=== PATIENT | female | born 1965 | race Caucasian/White ===

== ENCOUNTER 2016-03-05 16:46 | Emergency (ER) | payer MEDICAID ==
[2016-03-05] MEDS ORDERED: CLONIDINE HCL 0.1 MG TABLET PO ONE (17:16)
[2016-03-05] MEDS ORDERED: ACETAMINOPHEN 325 MG TABLET PO ONE (17:16)
--- NOTE | 2016-03-05 17:17 | ER Document Report ---
ED Medical Screen (RME) - General Stated Complaint: BLOOD PRESSURE ISSUE Mode of Arrival: Ambulatory Information source: Patient Notes: Patient was at her [employer] [employer] doctors office for routine Pap test. Patient had blood pressure. Patient states she doesn't history of hypertension but has not been on medication for years. Patient complains of fatigue but denies any other symptoms. Patient claims of mild headache that started over the past hour. hx: Hypertension I have greeted and performed a rapid initial assessment of this patient. A comprehensive ED assessment and evaluation of the patient, analysis of test results and completion of the medical decision making process will be conducted by additional ED providers. TRAVEL OUTSIDE OF THE [place] IN LAST 30 DAYS: No - Related Data Allergies/Adverse Reactions: No Known Allergies Allergy (Verified 03/05/16 17:15) Past Medical History - Past Medical History Cardiac Medical History: Reports: Hx Hypertension - Immunizations Hx Diphtheria, Pertussis, Tetanus Vaccination: Yes - UTD Physical Exam - Vital signs Vitals: Temp Pulse Resp BP Pulse Ox 98.2 F 92 20 188/113 H 99 03/05/16 16:49 03/05/16 16:49 03/05/16 16:49 03/05/16 16:49 03/05/16 16:49 - Neurological Neuro grossly intact: Yes Cognition: Normal [place] Coma Scale Eye Opening: Spontaneous [place] Coma Scale Verbal: Oriented [place] Coma Scale Motor: Obeys Commands Arits Coma Scale Total: 15 Course - Vital Signs Vital signs: Temp Pulse Resp BP Pulse Ox 98.2 F 92 20 188/113 H 99 03/05/16 16:49 03/05/16 16:49 03/05/16 16:49 03/05/16 16:49 03/05/16 16:49
[2016-03-05] MEDS ORDERED: LISINOPRIL 10 MG TABLET PO ONE (17:57)
--- NOTE | 2016-03-05 18:03 | ER Document Report ---
ED Blood Pressure Problem - General Chief Complaint: High Blood Pressure Stated Complaint: BLOOD PRESSURE ISSUE Time seen by provider: 17:58 Mode of Arrival: Ambulatory Notes: This is a 50-year-old female with a history of hypertension that presents today with elevated blood pressure. 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 On repeat measurement the blood pressure was 162/118. She admits to a frontal bilateral headache that started at 1500 today. Admits to light sensitivity but denies nausea vomiting or chills chest pain or pleuritic chest pain. Patient denies eye pain. Headache is 5 out of 10 with no radiation. She has had intermittent headaches similar in symptoms for the past 3 days. [facility] but does not have a primary care physician. She states that she has not taken any blood pressure medicine for years. TRAVEL OUTSIDE OF THE [place] IN LAST 30 DAYS: No - Related Data Allergies/Adverse Reactions: No Known Allergies Allergy (Verified 03/05/16 17:15) Past Medical History - General Information source: Patient - Social History Smoking Status: Current Every Day Smoker - Patient smokes 3 cigarettes per day for the past 6 years Chew tobacco use (# tins/day): No Frequency of alcohol use: None Drug Abuse: None Family History: Hypertension Patient has suicidal ideation: No Patient has homicidal ideation: No - Past Medical History Cardiac Medical History: Reports: Hx Hypertension Renal/ Medical History: Denies: Hx Peritoneal Dialysis - Immunizations Hx Diphtheria, Pertussis, Tetanus Vaccination: Yes - UTD Review of Systems - Review of Systems Constitutional: denies: Chills, Fever EENT: See HPI Cardiovascular: denies: Chest pain, Dyspnea Respiratory: denies: Cough, Hurts to breathe Gastrointestinal: denies: Abdominal pain Genitourinary: No symptoms reported Musculoskeletal: No symptoms reported Skin: No symptoms reported Hematologic/Lymphatic: No symptoms reported Neurological/Psychological: No symptoms reported Physical Exam - Vital signs Vitals: Temp Pulse Resp BP Pulse Ox 98.2 F 92 20 188/113 H 99 03/05/16 16:49 03/05/16 16:49 03/05/16 16:49 03/05/16 16:49 03/05/16 16:49 - General General appearance: Appears well In distress: None - HEENT Head: Normocephalic, Atraumatic Eyes: Normal - No circumferential injection. No redeye bilaterally Conjunctiva: Normal Pupils: PERRL - Bilateral normal pupillary light reflex. - Respiratory Respiratory status: No respiratory distress Breath sounds: Normal. No: Rales, Rhonchi, Stridor, Wheezing - Cardiovascular Rhythm: Regular Heart sounds: Normal auscultation - Abdominal Inspection: Normal Tenderness: Nontender - Back Back: Normal. No: CVA tenderness - Extremities General upper extremity: Normal inspection, Nontender, Normal strength, Normal temperature General lower extremity: Normal inspection, Nontender, Normal strength, Normal temperature - Neurological Cognition: Normal. No: Confused - Psychological Associated symptoms: Normal affect, Normal mood - Skin Skin Temperature: Warm Skin Moisture: Dry Skin Color: Normal Course - Re-evaluation Re-evalutation: 03/05/16 18:00 Patient was advised to establish care with primary care physician. Patient was advised to take blood pressure medicine as prescribed and regularly check blood pressure. Patient was advised to recheck blood pressure at primary care physician's office in a week or come back to the emergency department if she develops any symptoms. - Vital Signs Vital signs: Temp Pulse Resp BP Pulse Ox 98.6 F 83 20 154/108 H 96 03/05/16 18:38 03/05/16 18:38 03/05/16 16:49 03/05/16 18:38 03/05/16 18:38 - Laboratory Result Diagrams: 03/05/16 17:55 03/05/16 17:55 Laboratory results interpreted by me: 03/05/16 17:55 RDW 14.1 H Discharge - Discharge Clinical Impression: Headache Qualifiers: Headache type: tension-type Headache chronicity pattern: acute headache Intractability: not intractable Qualified Code(s): G44.209 - Tension-type headache, unspecified, not intractable High blood pressure Qualifiers: Hypertension type: essential hypertension Qualified Code(s): I10 - Essential ( primary) hypertension Condition: Stable Disposition: HOME, SELF-CARE Additional Instructions: Return to the emergency department if symptoms worsen such as loss of consciousness, changes in vision, nausea, vomiting,etc. follow-up with primary care physician as soon as possible.High Blood Pressure When your blood pressure was taken today it was elevated. Today's reading was 188/113 . Pre-hypertension/Hypertension: The patient has been informed that they may have pre-hypertension or Hypertension based on a blood pressure reading in the emergency department. I recommend that the patient call the primary care provider listed on their dischargge instructions or a physician of their choice this wee to arrage follow up for further evaluation of possible pre- hypertension or Hypertension. Sometimes, stress or illness causes a temporary elevation of your blood pressure. We suggest that you get your blood pressure measured three more times during the next few days to see if this is more than a temporary abnormality. If your blood pressure is greater than 150/90 on each occasion, you must have treatment. Some simple things you can do to help are: If you have blood pressure medicine but aren't using it regularly, start taking it again. Get some aerobic exercise for at least 20 minutes on a daily basis. (See your doctor before beginning a new exercise program.) Eat a low-fat diet. Lose excess weight. Avoid salty foods and avoid adding salt to any of the foods you eat. Avoid diet pills, decongestants, "energizing" herbs, and other medicines that elevate blood pressure. If left untreated, hypertension greatly enhances your risk for developing heart disease and strokes. Please don't ignore this problem. Prescriptions: Lisinopril 20 mg PO ONCE #20 tablet Referrals: [facility] [Provider Group] - Follow up as needed
[2016-03-05 18:04] LABS: ABSOLUTE EOSINOPHILS # (AUTO) 0.3 10^3/uL (0.0-0.6); ABSOLUTE LYMPHOCYTES (AUTO) 2.3 10^3/uL (0.5-4.7); ABSOLUTE MONOCYTES (AUTO) 0.6 10^3/uL (0.1-1.4); ABSOLUTE NEUT (AUTO) 4.4 10^3/uL (1.7-8.2); BASOPHILS % (AUTO) 0.6 % (0-2); EOSINOPHILS % (AUTO) 4.4 % (0-6); HEMATOCRIT 41.3 % (36.0-47.0); HEMOGLOBIN 13.3 g/dL (12.0-15.5); HGB HCT DIFFERENCE -1.4; LYMPHOCYTES % (AUTO) 29.8 % (13-45); MEAN CORPUSCULAR HEMOGLOBIN 30.2 pg (27.0-33.4); MEAN CORPUSCULAR HGB CONC 32.2 g/dL (32.0-36.0); MEAN CORPUSCULAR VOLUME 94 fl (80-97); MONOCYTES % (AUTO) 7.9 % (3-13); RED CELL DISTRIBUTION WIDTH 14.1 % (11.5-14.0); SEGMENTED NEUTROPHILS % (AUTO) 57.3 % (42-78); WHITE BLOOD COUNT 7.6 10^3/uL (4.0-10.5)
[2016-03-05 18:29] LABS: ALANINE AMINOTRANSFERASE 45 U/L (9-52); ALBUMIN 4.3 g/dL (3.5-5.0); ALKALINE PHOSPHATASE 87 U/L (38-126); ANION GAP 12 (5-19); ASPARTATE AMINO TRANSFERASE 35 U/L (14-36); BILIRUBIN,TOTAL 0.4 mg/dL (0.2-1.3); BLOOD UREA NITROGEN 16 mg/dL (7-20); CALCIUM 9.8 mg/dL (8.4-10.2); CARBON DIOXIDE 25 mmol/L (22-30); CHLORIDE 104 mmol/L (98-107); CREATININE RESULT 0.64 mg/dL (0.52-1.25); GLUCOSE 85 mg/dL (75-110); POTASSIUM 4.1 mmol/L (3.6-5.0); TOTAL PROTEIN 7.4 g/dL (6.3-8.2)
[2016-03-05 18:39] VITALS: BP 154/108
== END 2016-03-05 18:50 | disposition home or self-care (01) ==
LOC: ER 16:46
DX: G44.209 Tension-type headache, unspecified, not intractable (principal); I10 Essential (primary) hypertension; F17.210 Nicotine dependence, cigarettes, uncomplicated
CPT/HCPCS: 99283; 36415; 85025; 80053; J3490 ×3

== ENCOUNTER 2016-07-06 09:47 | Emergency (ER) | payer MEDICAID ==
[2016-07-06 09:58] VITALS: BP 153/89
[2016-07-06] MEDS ORDERED: NORMAL SALINE 1000 ML 1,000 ML IV ONE (10:27)
[2016-07-06] MEDS ORDERED: ONDANSETRON 4 MG TAB.RAPDIS PO ONE (10:27)
--- NOTE | 2016-07-06 10:29 | ER Document Report ---
ED Medical Screen (RME) - General Chief Complaint: Abdominal Cramping Stated Complaint: VOMITING,ABDOMINAL PAIN Time Seen by Provider: 07/06/16 10:22 Notes: Patient is a 50-year-old female presents emergency department complaining of diarrhea for 2 weeks now with associated abdominal cramping, nausea, vomiting that started yesterday. Patient states that she underwent an elective gynecologic procedure 1 month ago and was discharged home on antibiotics. She does not know what antibiotic she was on. When she completed that course she has been having diarrhea for the past 2 weeks. No evidence of bright red blood per rectum, dark tarry stools. Denies any history of abdominal procedure otherwise. TRAVEL OUTSIDE OF THE [place] IN LAST 30 DAYS: No - Related Data Allergies/Adverse Reactions: No Known Allergies Allergy (Verified 07/06/16 09:57) Past Medical History - Past Medical History Cardiac Medical History: Reports: Hx Hypertension Renal/ Medical History: Denies: Hx Peritoneal Dialysis - Immunizations Hx Diphtheria, Pertussis, Tetanus Vaccination: Yes - UTD Physical Exam - Vital signs Vitals: Temp Pulse Resp BP Pulse Ox 98.0 F 95 18 153/89 H 97 07/06/16 09:56 07/06/16 09:56 07/06/16 09:56 07/06/16 09:56 07/06/16 09:56 Course - Vital Signs Vital signs: Temp Pulse Resp BP Pulse Ox 98.0 F 95 18 153/89 H 97 07/06/16 09:56 07/06/16 09:56 07/06/16 09:56 07/06/16 09:56 07/06/16 09:56
[2016-07-06 10:58] LABS: APPEARANCE,URINE SLIGHTLY-CLOUDY; BILIRUBIN,URINE NEGATIVE (NEGATIVE); GLUCOSE, URINE NEGATIVE (NEGATIVE); KETONES,URINE 20 mg/dL (NEGATIVE); LEUKOCYTE ESTERASE,URINE NEGATIVE (NEGATIVE); NITRITE,URINE NEGATIVE (NEGATIVE); PROTEIN,URINE 30 mg/dL (NEGATIVE); URINE SPECIFIC GRAVITY 1.016; UROBILINOGEN,URINE NEGATIVE mg/dL (<2.0)
[2016-07-06 11:28] LABS: ABSOLUTE EOSINOPHILS # (AUTO) 0.2 10^3/uL (0.0-0.6); ABSOLUTE MONOCYTES (AUTO) 0.6 10^3/uL (0.1-1.4); ABSOLUTE NEUT (AUTO) 9.1 10^3/uL (1.7-8.2); BASOPHILS % (AUTO) 0.2 % (0-2); EOSINOPHILS % (AUTO) 2.1 % (0-6); HEMATOCRIT 40.4 % (36.0-47.0); HEMOGLOBIN 13.9 g/dL (12.0-15.5); HGB HCT DIFFERENCE 1.3; LYMPHOCYTES % (AUTO) 9.2 % (13-45); MEAN CORPUSCULAR HEMOGLOBIN 31.9 pg (27.0-33.4); MEAN CORPUSCULAR HGB CONC 34.3 g/dL (32.0-36.0); MEAN CORPUSCULAR VOLUME 93 fl (80-97); MONOCYTES % (AUTO) 5.5 % (3-13); RED BLOOD COUNT 4.34 10^6/uL (3.72-5.28); RED CELL DISTRIBUTION WIDTH 13.8 % (11.5-14.0)
[2016-07-06 11:40] LABS: ALANINE AMINOTRANSFERASE 34 U/L (9-52); ALBUMIN 4.4 g/dL (3.5-5.0); ALKALINE PHOSPHATASE 90 U/L (38-126); ANION GAP 14 (5-19); ASPARTATE AMINO TRANSFERASE 29 U/L (14-36); BILIRUBIN,DIRECT 0.3 mg/dL (0.0-0.4); BILIRUBIN,TOTAL 0.8 mg/dL (0.2-1.3); BLOOD UREA NITROGEN 10 mg/dL (7-20); CALCIUM 9.7 mg/dL (8.4-10.2); CARBON DIOXIDE 30 mmol/L (22-30); CHLORIDE 99 mmol/L (98-107); CREATININE RESULT 0.66 mg/dL (0.52-1.25); GLUCOSE 98 mg/dL (75-110); LIPASE 17.2 U/L (23-300); POTASSIUM 3.7 mmol/L (3.6-5.0); SODIUM 142.8 mmol/L (137-145); TOTAL PROTEIN 7.8 g/dL (6.3-8.2)
--- NOTE | 2016-07-06 12:02 | ER Document Report ---
ED GI/ - General Mode of Arrival: Ambulatory Information source: Patient TRAVEL OUTSIDE OF THE [place] IN LAST 30 DAYS: No - HPI Patient complains to provider of: Diarrhea Associated symptoms: Other - See above <DERRELL SHELDON - Last Filed: 07/06/16 12:04> <ALONSO CARTER - Last Filed: 07/06/16 15:41> - General Chief Complaint: Diarrhea Stated Complaint: diarrhea Time Seen by Provider: 07/06/16 10:22 Notes: Patient is a 50 year old female, with a past medical history including HTN, who presents to the emergency department complaining of diarrhea onset 2 weeks ago. Patient states that she underwent an elective gynecologic procedure 1 month ago and was discharged home on antibiotics. Patient states that the anti-diarrheal medicine have not been working. Patient also complains of abdominal cramping and vomiting onset yesterday. Patient denies dysuria. PCP: [facility] (DERRELL SHELDON) - Related Data Allergies/Adverse Reactions: No Known Allergies Allergy (Verified 07/06/16 09:57) Past Medical History - General Information source: Patient - Social History Smoking Status: Current Some Day Smoker Chew tobacco use (# tins/day): No Frequency of alcohol use: Occasional Drug Abuse: None Family History: Reviewed & Not Pertinent, Hypertension Patient has suicidal ideation: No Patient has homicidal ideation: No - Past Medical History Cardiac Medical History: Reports: Hx Hypertension - Immunizations Hx Diphtheria, Pertussis, Tetanus Vaccination: Yes - UTD <DERRELL SHELDON - Last Filed: 07/06/16 12:04> Review of Systems - Review of Systems Gastrointestinal: See HPI, Abdominal pain, Diarrhea, Vomiting -: Yes All other systems reviewed and negative <DERRELL SHELDON - Last Filed: 07/06/16 12:04> Course - Laboratory Result Diagrams: 07/06/16 11:10 07/06/16 11:10 <DERRELL SHELDON - Last Filed: 07/06/16 12:04> - Laboratory Result Diagrams: 07/06/16 11:10 07/06/16 11:10 <ALONSO CARTER - Last Filed: 07/06/16 15:41> - Re-evaluation Re-evalutation: 07/06/16 12:15 Patient presents emergency department 2 week history of intermittent diarrhea nonbloody in nature. In 2-3 days ago she started having vomiting. 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 No history of Crohn's disease or ulcerative colitis. On exam she is well-appearing nontoxic in no acute distress and after Zofran she feels like she wants to eat something. She gave a stool sample and a urine sample out in the triage area and was already receiving Zofran and IV fluids. Her abdomen is soft no acute tenderness Kreymerman G stable acute labs were positive for C. difficile. Vomiting is controlled no acute abdominal guarding rebound rigidity plan discharge with medications for Flagyl and Cipro oral hydration nausea medication follow-up to 3 days and discussed reasons for ED return (ALONSO CARTER) - Vital Signs Vital signs: Temp Pulse Resp BP Pulse Ox 98.8 F 92 18 153/89 H 98 07/06/16 12:33 07/06/16 12:33 07/06/16 12:33 07/06/16 12:33 07/06/16 12:33 - Laboratory Laboratory results interpreted by me: 07/06/16 07/06/16 07/06/16 10:40 11:10 11:10 WBC 11.0 H Seg Neutrophils % 83.0 H Lymphocytes % 9.2 L Absolute Neutrophils 9.1 H Lipase 17.2 L Urine Protein 30 H Urine Ketones 20 H Urine Blood MODERATE H Discharge <DERRELL SHELDON - Last Filed: 07/06/16 12:04> <ALONSO CARTER - Last Filed: 07/06/16 15:41> - Discharge Clinical Impression: C. difficile diarrhea Vomiting Qualifiers: Vomiting type: unspecified Vomiting Intractability: non-intractable Nausea presence: with nausea Qualified Code(s): R11.2 - Nausea with vomiting, unspecified Condition: Stable Disposition: HOME, SELF-CARE Instructions: Antinausea Medication ([facility]) Additional Instructions: C. (Clostridium) Difficile Infection C. difficile bacteria are everywhere - in soil, air, water, human and animal feces, and on most surfaces. The bacteria don't create problems until they grow in abnormally large numbers in the intestinal tract of people taking antibiotics or other antimicrobial drugs. Then, C. difficile can cause symptoms ranging from diarrhea to life-threatening inflammations of the colon. According to the Centers for Disease Control and Prevention, each year in the [place] C. difficile is responsible for tens of thousands of cases of diarrhea and at least 5,000 deaths. And the problem is getting worse. The number of C. difficile infections doubled between 1992 and 2002, with most of the increase coming after 1999. Your intestinal tract contains hundreds of kinds of bacteria (intestinal linda). Many are essential, helping to synthesize certain vitamins and stimulating the immune system. And some play a lyons role in suppressing the growth of harmful organisms. But when you take an antibiotic to treat an infection, it often destroys these beneficial bacteria as well as the bacteria that's causing your illness. Without enough healthy bacteria, dangerous pathogens such as C. difficile can quickly grow out of control. Once it takes hold, C. difficile can produce two virulent toxins that attack the lining of the intestine. The toxins destroy cells and produce pseudomembranes - telltale patches (plaques) of inflammatory cells and decaying cellular debris on the interior surface of the colon. Almost any antibiotic can cause harmful bacteria to proliferate in the intestine, but ampicillin, amoxicillin, clindamycin, fluoroquinolones and cephalosporins are most often implicated in C. difficile infections. The use of broad-spectrum drugs that target a wide range of bacteria and the taking of antibiotics for a prolonged period increase the chance of infection. Other antimicrobials, including antiviral and antifungal drugs, and chemotherapy medications also can lead to an increased risk of infection with C. difficile. It's also a growing problem among otherwise healthy people. And although the infection can usually be controlled with antibiotics, virulent strains of C. difficile are now appearing that resist treatment with common medications. Vomiting Vomiting can be part of many illnesses. Most cases of vomiting are due to gastroenteritis, usually a viral infection in the intestinal tract. There is no specific treatment. The disease will end by itself. For now, the main danger to your child is dehydration. During the first few hours of the illness, give clear liquids, such as Pedialyte. Try to give small quantities frequently, such as a teaspoon of liquid every minute or about an ounce of fluids every five to ten minutes. Medications may be prescribed by the physician for special cases. After an hour or two of fluids without vomiting, add rice cereal, toast, applesauce, or bananas and other more solid foods to the clear liquids. Call the physician or go to the hospital if vomiting increases or blood appears in the bowel movement or vomitus; if your child fails to improve, or if signs of dehydration occur (no wet diapers for eight to twelve hours, tongue and mouth become dry, not acting as alert as usual). Prescriptions: Ciprofloxacin HCl [Cipro 500 mg Tablet] 500 mg PO BID #20 tablet Metronidazole [Flagyl 500 mg Tablet] 500 mg PO Q6H #28 tablet Ondansetron [Zofran Odt 4 mg Tablet] 1 - 2 tab PO Q4H PRN #15 tab.rapdis PRN Reason: For Nausea/Vomiting Referrals: JOHN SANTOS MD [Primary Care Provider] - Follow up as needed Scribe Attestation: 07/06/16 12:14 I personally performed the services described in the documentation reviewed the documentation recorded by my scribe in my presence and it accurately and completely records my words and actions (ALONSO CARTER)
== END 2016-07-06 12:34 | disposition home or self-care (01) ==
LOC: ER 09:47
DX: A04.7 Enterocolitis due to Clostridium difficile (principal); R11.2 Nausea with vomiting, unspecified; I10 Essential (primary) hypertension; R10.9 Unspecified abdominal pain; F17.200 Nicotine dependence, unspecified, uncomplicated; Z98.890 Other specified postprocedural states
CPT/HCPCS: 99284; 96360; 36415; 83690; 85025; 80053; 81001; 87493 ×2; S0119; J7030

== ENCOUNTER 2017-05-12 15:33 | Emergency (ER) | payer MEDICAID ==
[2017-05-12 15:55] VITALS: BP 152/88
[2017-05-12] MEDS ORDERED: KETOROLAC TROMETHAMINE INJ/PF 30 MG/1 ML SDV IM ONE (16:04)
--- NOTE | 2017-05-12 16:05 | ER Document Report ---
ED Neck/Back Problem - General Chief Complaint: Low Back Pain Stated Complaint: BACK PAIN Time Seen by Provider: 05/12/17 15:56 Mode of Arrival: Ambulatory Information source: Patient TRAVEL OUTSIDE OF THE [place] IN LAST 30 DAYS: No - HPI Patient complains to provider of: Pain, Lower back Notes: Patient is here with complaints of low back pain radiating down the left leg. Is been present for the last few weeks. Seems to be getting worse. Pain is worse with movement, better with rest. She denies any traumatic injuries. States that this started after she was on an elliptical for several hours. She denies any bowel or bladder dysfunction. She denies blood thinners. She denies IV drug use. No fever. No abdominal pain. No nausea, vomiting, diarrhea. No dysuria or hematuria. No chest pain or shortness of breath. She denies any other complaints at this time. - Related Data Allergies/Adverse Reactions: No Known Allergies Allergy (Verified 05/12/17 15:36) Past Medical History - Social History Smoking Status: Unknown if Ever Smoked Family History: Reviewed & Not Pertinent, Hypertension - Past Medical History Cardiac Medical History: Reports: Hx Hypertension Renal/ Medical History: Denies: Hx Peritoneal Dialysis - Immunizations Hx Diphtheria, Pertussis, Tetanus Vaccination: Yes - UTD Review of Systems - Review of Systems -: Yes All other systems reviewed and negative Physical Exam - Vital signs Vitals: Temp Pulse Resp BP Pulse Ox 97.5 F 76 16 152/88 H 99 05/12/17 15:53 05/12/17 15:53 05/12/17 15:53 05/12/17 15:53 05/12/17 15:53 - Notes Notes: GENERAL: alert, cooperative, nontoxic, no distress. HEAD: normocephalic, atraumatic EYES: conjunctiva pink without discharge, no external redness or swelling. EARS: no external swelling, no external redness NOSE: atraumatic, no external swelling MOUTH/THROAT: mucous membranes moist and pink, posterior pharynx without erythema, swelling, exudate. No trismus or drooling. NECK: soft, supple, full range of motion, no meningismus. CHEST: no distress, lungs clear and equal throughout. No wheezing, rales, rhonchi. CARDIAC: regular rate and rhythm, no murmur, normal capillary refill, normal pulses. No peripheral edema noted. ABDOMEN: soft, nontender, no pusatile mass. BACK: No CVA tenderness. Tenderness to the midline lumbar spine. No step-offs or crepitus. EXTREMITIES: full range of motion of all extremities. No redness, no swelling. NEURO: alert and oriented A&O x 3, no focal deficits, full range of motion of all extremities. 5 out of 5 flexion and extension of the lower extremities bilaterally. Patellar and Achilles deep tendon reflexes are +2 bilaterally. Normal sensation with no saddle anesthesia. Patient can dorsiflex the great toes bilaterally. PYSCH: appropriate mood, affect. Patient is cooperative. SKIN: pink, warm, dry, no rash. Course - Re-evaluation Re-evalutation: 05/12/17 16:45 Patient is nontoxic appearing with stable vitals. She is here with complaints of low back pain radiating down the left leg. There was no trauma. Patient has no signs of cauda equina, epidural abscess/bleed, discitis, osteomyelitis, limb ischemia, AAA. She has a nonfocal neurological exam at this time. X-ray shows degenerative changes lumbar spine with no other acute findings. This point the patient likely has some lumbar radiculopathy. The patient will be discharged home on Voltaren. If the Voltaren does not improve her symptoms within the next week, she may require steroids. She states that she took a [place] which did nothing but make her sleepy and she does not want any other sort of narcotic medications. She is instructed to follow-up if she has not improved in the next week, sooner for worsening pain, high fever, difficulty controlling her bowels or bladder, or for any further concerns. The patient's emergency department workup and current diagnosis were explained to the patient and or family. Follow-up instructions were provided. Medications if prescribed were discussed. Instructions for when to return to the emergency department including specific worrisome symptoms were discussed with the patient and/or family. The patient is noted to have elevated blood pressure during today's emergency department visit. The patient was informed of this finding. The patient was instructed that this may be related to pre-hypertension and requires further evaluation with a primary care provider. The patient has no hypertensive symptoms at this time. - Vital Signs Vital signs: Temp Pulse Resp BP Pulse Ox 97.5 F 76 16 152/88 H 99 03/26/18 15:53 05/12/17 15:53 05/12/17 15:53 05/12/17 15:53 05/12/17 15:53 - Diagnostic Test Radiology reviewed: Image reviewed, Reports reviewed - Degenerative changes of the lumbar spine. Discharge - Discharge Clinical Impression: Lumbar radiculopathy, acute Condition: Stable Disposition: HOME, SELF-CARE Instructions: Low Back Pain ([facility]), Radiculopathy ([facility]) Additional Instructions: Take medications as prescribed. Avoid heavy lifting. Follow-up if not better in 1 week, sooner for worsening pain, fever, difficulty controlling her bowels or bladder, persistent vomiting, chest pain, shortness of breath, or for any further concerns. Your blood pressure was elevated during today's visit. Have this rechecked with your doctor. Prescriptions: Diclofenac Sodium [Voltaren 50 Mg Tablet.] 50 mg PO BID #20 tablet. Forms: Elevated Blood Pressure, Smoking Cessation Education Referrals: [facility] [Provider Group] - Follow up as needed
--- NOTE | 2017-05-12 16:30 | RADIOLOGY REPORT (SQ) ---
EXAM DESCRIPTION: L SPINE WHOLE COMPLETED DATE/TIME: 05/12/2017 4:20 pm REASON FOR STUDY: low back pain, left leg pain COMPARISON: None. NUMBER OF VIEWS: Five views including obliques. TECHNIQUE: AP, lateral, oblique, and sacral radiographic images acquired of the lumbar spine. LIMITATIONS: None. FINDINGS: MINERALIZATION: Normal. SEGMENTATION: Normal. No transitional anatomy. ALIGNMENT: Normal. VERTEBRAE: Maintained height. No fracture or worrisome bone lesion. DISCS: Preserved height. Minimal anterior osteophytic lipping is identified in the upper lumbar spin e. POSTERIOR ELEMENTS: Pedicles and facets are intact. No pars defect or posterior arch defects. HARDWARE: None in the spine. PARASPINAL SOFT TISSUES: Normal. PELVIS: Intact as visualized. No fractures or worrisome bone lesions. SI joints intact. OTHER: No other significant finding. IMPRESSION: No significant vertebral compression or disc space reduction is seen. There is minimal anterior osteophytic lipping in the upper lumbar spine. Other findings as noted above TECHNICAL DOCUMENTATION: JOB ID: [id number]- All Rights Reserved Reading location - IP/workstation name: [email or web address]
== END 2017-05-12 17:01 | disposition home or self-care (01) ==
LOC: ER 15:33
DX: M54.16 Radiculopathy, lumbar region (principal); M54.5 Low back pain; M79.605 Pain in left leg; X58.XXXA Exposure to other specified factors, initial encounter; Y93.A1 Activity, exercise machines primarily for cardiorespiratory conditioning; I10 Essential (primary) hypertension
CPT/HCPCS: 99283; 96372; 72110; J1885

== ENCOUNTER 2017-07-30 05:56 | Observation (INO) | payer MEDICAID ==
--- NOTE | 2017-07-30 07:12 | ER Document Report ---
ED General - General Chief Complaint: Abdominal Pain Stated Complaint: ABDOMINAL PAIN Time Seen by Provider: 07/30/17 07:12 Mode of Arrival: Ambulatory Information source: Patient TRAVEL OUTSIDE OF THE [place] IN LAST 30 DAYS: No - HPI Notes: 51-year-old female presents to the ED with complaints of LUQ, epigastric, right upper quadrant pain has been occurring for the last day with nausea and vomiting. Intermittent chills, denies fevers. Worse with time, nothing makes better. Has not tried any [id number]-dgu-dfkosfe medication. Denies any rashes. Denies any trauma. Denies fevers, chills, chest pain,palpitations, shortness of breath, dyspnea,diarrhea, hematuria,blurred vision, double vision, loss of vision, speech changes, LH, dizziness, syncope, headaches, wheezing, ST, URI, neck pain, weakness, bowel or bladder dysfunction, saddle anesthesia, numbness or tingling in bilateral upper or lower extremities equally, muscle paralysis, weakness in bilateral upper or lower extremities equally or rash. Denies IV drug use. - Related Data Allergies/Adverse Reactions: No Known Allergies Allergy (Verified 07/30/17 10:53) Past Medical History - General Information source: Patient - Social History Smoking Status: Unknown if Ever Smoked Family History: Reviewed & Not Pertinent, Hypertension - Past Medical History Cardiac Medical History: Reports: Hx Hypertension Renal/ Medical History: Denies: Hx Peritoneal Dialysis - Immunizations Hx Diphtheria, Pertussis, Tetanus Vaccination: Yes - UTD Review of Systems - Review of Systems Constitutional: See HPI EENT: No symptoms reported Cardiovascular: No symptoms reported Respiratory: No symptoms reported Gastrointestinal: See HPI Genitourinary: No symptoms reported Female Genitourinary: No symptoms reported Musculoskeletal: No symptoms reported Skin: No symptoms reported Hematologic/Lymphatic: No symptoms reported Neurological/Psychological: No symptoms reported Physical Exam - Vital signs Vitals: Temp Pulse Resp BP Pulse Ox 97.6 F 93 18 151/101 H 96 07/30/17 06:04 07/30/17 06:04 07/30/17 06:04 07/30/17 06:04 07/30/17 06:04 - Notes Notes: PHYSICAL EXAMINATION: GENERAL: Well-appearing, well-nourished and in no acute distress. HEAD: Atraumatic, normocephalic. EYES: Pupils equal round and reactive to light, extraocular movements intact, conjunctiva are normal. ENT: Nares patent, oropharynx clear without exudates. Moist mucous membranes. NECK: Normal range of motion, supple without lymphadenopathy LUNGS: Breath sounds clear to auscultation bilaterally and equal. No wheezes rales or rhonchi. HEART: Regular rate and rhythm without murmurs ABDOMEN: Soft, nondistended abdomen. LUQ, epigastric, RUQ tenderness on palpation with rebound. No guarding, no rebound. No masses appreciated. Female : deferred Musculoskeletal: Normal range of motion, no pitting or edema. No cyanosis. NEUROLOGICAL: Cranial nerves grossly intact. Normal speech, normal gait. Normal sensory, motor exams PSYCH: Normal mood, normal affect. SKIN: Warm, Dry, normal turgor, no rashes or lesions noted. Dictation was performed using [employer] voice recognition software Course - Re-evaluation Re-evalutation: 07/30/17 15:00 51-year-old female for who is afebrile, vitals stable and in mild distress for evaluation of nausea vomiting with upper abdominal pain. CT abdomen and pelvis shows thickening of gallbladder, limited right upper quadrant ultrasound. Transvaginal ultrasound shows a right small ovarian cysts, and no other pelvic abnormalities are identified. Slight elevation of LFTs, no elevation in bilirubin. ultrasound of right upper quadrant shows gallstones with biliary sludge, thickening of the gallbladder measuring 3.1, common bile duct is patent. Dr.Travis Ayala, surgeon on-call, contacted at [phone] bedside surgery consult. Admit under surgery service for removal of cholecystitis. All questions and concerns answered by this provider patient to be admitted. Patient agreeable to admission. - Vital Signs Vital signs: Temp Pulse Resp BP Pulse Ox 97.9 F 93 7 L 134/80 H 99 07/30/17 14:00 07/30/17 06:04 07/30/17 14:01 07/30/17 14:01 07/30/17 14:01 - Laboratory Result Diagrams: 07/30/17 08:25 07/30/17 08:25 Laboratory results interpreted by me: 07/30/17 07/30/17 08:05 08:25 Sodium 147.0 H Potassium 3.2 L Carbon Dioxide 35 H AST 70 H ALT 86 H Urine Protein 100 H Urine Ketones TRACE H Urine Blood MODERATE H Ur Leukocyte Esterase TRACE H Discharge - Discharge Clinical Impression: Bacterial vaginosis, Cholecystitis Condition: Stable Disposition: ADMITTED INPATIENT Admitting Provider: Surgicalist - Dr. Valdo Suh Unit Admitted: Surgical Floor Referrals: GUERRERO DELGADO PA-C [Primary Care Provider] - Follow up as needed
[2017-07-30] MEDS ORDERED: ONDANSETRON HCL INJ/PF 4 MG/2 ML SDV IV ONE (07:35)
[2017-07-30] MEDS ORDERED: KETOROLAC TROMETHAMINE INJ/PF 30 MG/1 ML SDV IV ONE (07:35)
[2017-07-30] MEDS ORDERED: METOCLOPRAMIDE HCL ORAL SOLN 10 MG/10 ML UDCUP PO ONE (07:36)
[2017-07-30] MEDS ORDERED: LIDOCAINE 2% VISCOUS SOLN 20 ML UDCUP PO ONE (07:36)
[2017-07-30] MEDS ORDERED: MAG HYDROX/AL HYDROX/SIMETH SUSP 30 ML UDCUP PO ONE (07:36)
[2017-07-30 08:26] LABS: APPEARANCE,URINE CLOUDY; BILIRUBIN,URINE NEGATIVE (NEGATIVE); COLOR,URINE YELLOW; GLUCOSE, URINE NEGATIVE (NEGATIVE); KETONES,URINE TRACE mg/dL (NEGATIVE); LEUKOCYTE ESTERASE,URINE TRACE (NEGATIVE); NITRITE,URINE NEGATIVE (NEGATIVE); PROTEIN,URINE 100 mg/dL (NEGATIVE); URINE SPECIFIC GRAVITY 1.019; UROBILINOGEN,URINE NEGATIVE mg/dL (<2.0)
[2017-07-30] MEDS: NORMAL SALINE 1000 ML 1,000 ML IV PRN ×3 (08:30→14:39)
[2017-07-30 08:50] LABS: ABSOLUTE EOSINOPHILS # (AUTO) 0.1 10^3/uL (0.0-0.6); ABSOLUTE LYMPHOCYTES (AUTO) 1.7 10^3/uL (0.5-4.7); ABSOLUTE MONOCYTES (AUTO) 0.6 10^3/uL (0.1-1.4); BASOPHILS % (AUTO) 0.6 % (0-2); EOSINOPHILS % (AUTO) 2.2 % (0-6); HEMOGLOBIN 12.7 g/dL (12.0-15.5); LYMPHOCYTES % (AUTO) 26.3 % (13-45); MEAN CORPUSCULAR HEMOGLOBIN 32.5 pg (27.0-33.4); MEAN CORPUSCULAR HGB CONC 35.4 g/dL (32.0-36.0); MEAN CORPUSCULAR VOLUME 92 fl (80-97); MONOCYTES % (AUTO) 9.3 % (3-13); PLATELET COUNT 289 10^3/uL (150-450); RED BLOOD COUNT 3.92 10^6/uL (3.72-5.28); RED CELL DISTRIBUTION WIDTH 13.9 % (11.5-14.0); SEGMENTED NEUTROPHILS % (AUTO) 61.6 % (42-78); TOTAL CELLS COUNTED % (AUTO) 100 %; WHITE BLOOD COUNT 6.5 10^3/uL (4.0-10.5)
[2017-07-30 09:19] LABS: ALANINE AMINOTRANSFERASE 86 U/L (9-52); ALBUMIN 3.8 g/dL (3.5-5.0); ALKALINE PHOSPHATASE 73 U/L (38-126); ANION GAP 10 (5-19); ASPARTATE AMINO TRANSFERASE 70 U/L (14-36); BILIRUBIN,DIRECT 0.2 mg/dL (0.0-0.4); BILIRUBIN,TOTAL 0.2 mg/dL (0.2-1.3); BLOOD UREA NITROGEN 14 mg/dL (7-20); CALCIUM 9.6 mg/dL (8.4-10.2); CARBON DIOXIDE 35 mmol/L (22-30); CHLORIDE 102 mmol/L (98-107); CREATINE KINASE 82 U/L (30-135); GLUCOSE 97 mg/dL (75-110); LIPASE 45.6 U/L (23-300); POTASSIUM 3.2 mmol/L (3.6-5.0); TOTAL PROTEIN 6.5 g/dL (6.3-8.2)
[2017-07-30 09:31] LABS: CREATINE KINASE MB 0.55 ng/mL (<4.55)
[2017-07-30 09:32] LABS: TROPONIN I < 0.012 ng/mL
[2017-07-30] MEDS ORDERED: FENTANYL CITRATE INJ/PF 100 MCG/2 ML AMPUL IV ONE (11:08)
--- NOTE | 2017-07-30 11:12 | RADIOLOGY REPORT (SQ) ---
EXAM DESCRIPTION: CT ABD/PELVIS WITH IV ONLY COMPLETED DATE/TIME: 07/30/2017 10:47 am REASON FOR STUDY: RUQ, LUQ abd pain, vag bleeding COMPARISON: None. TECHNIQUE: CT scan of the abdomen and pelvis performed using helical scanning technique with dynamic intravenous contrast injection. No oral contrast. Images reviewed with lung, soft tissue, and bone windows. Reconstructed coronal and sagittal MPR images reviewed. Delayed images for evaluation of the urinary system also acquired. All images stored on PACS. All CT scanners at this facility use dose modulation, iterative reconstruction, and/or weight based d osing when appropriate to reduce radiation dose to as low as reasonably achievable (ALARA). [facility]: Dose Right [facility]: CareDose [facility]: Dose Right [facility]: Teradose 4D [facility]: Coomuna CONTRAST TYPE AND DOSE: contrast/concentration: Isovue 370.00 mg/ml; Total Contrast Delivered: 83.0 ml; Total Saline Delivered: 65.0 ml RENAL FUNCTION: Creatinine 0.52 RADIATION DOSE: CT Rad equipment meets quality standard of care and radiation dose reduction techniq ues were employed. CTDIvol: 10.6 - 14.5 mGy. DLP: 1427 mGy-cm.. LIMITATIONS: None. FINDINGS: LOWER CHEST: No significant findings. No nodules or infiltrates. LIVER: Normal size. No masses. No dilated ducts. SPLEEN: Normal size. No focal lesions. PANCREAS: No masses. No significant calcifications. No adjacent inflammation or peripancreatic fluid collections. Pancreatic duct not dilated. GALLBLADDER: Multiple gallstones are identified with faintly visualized huerta. There is thickening o f the huerta of the gallbladder and the possibility of cholecystitis should be considered. No pericho lecystic fluid is identified. ADRENAL GLANDS: No significant masses or asymmetry. RIGHT KIDNEY AND URETER: No solid masses. No significant calcifications. No hydronephrosis or hyd roureter. LEFT KIDNEY AND URETER: No solid masses. No significant calcifications. No hydronephrosis or hydr oureter. AORTA AND VESSELS: No aneurysm. No dissection. Renal arteries, SMA, celiac without stenosis. RETROPERITONEUM: No retroperitoneal adenopathy, hemorrhage or masses. BOWEL AND PERITONEAL CAVITY: No masses or inflammatory changes. No free fluid or peritoneal masses. APPENDIX: Normal. PELVIS: No mass. No free fluid. Normal bladder. ABDOMINAL WALL: No masses. No hernias. BONES: No significant or acute findings. OTHER: No other significant finding. IMPRESSION: Findings consistent with gallstones. There is thickening of the huerta of the gallbladde r and the possibility of cholecystitis should be considered. No pericholecystic fluid is identified. If clinically warranted this could be confirmed with a gallbladder ultrasound. Other findings as n oted above. TECHNICAL DOCUMENTATION: JOB ID: [id number] Quality ID # [id number]: Final reports with documentation of one or more dose reduction techniques (e.g., Au tomated exposure control, adjustment of the mA and/or kV according to patient size, use of iterative reconstruction technique) 2010 [employer]- All Rights Reserved Reading location - IP/workstation name: [email or web address]
[2017-07-30 11:26] LABS: BACTERIA (WET MOUNT) 3+ BACTERIA SEEN; RBCS (WET MOUNT) 4+ RBCS SEEN; T.VAGINALIS (WET MOUNT) NO TRICHOMONAS SEEN; WBCS (WET MOUNT) 2+ WBCS SEEN; YEAST (WET MOUNT) NO YEAST SEEN
[2017-07-30] MEDS ORDERED: POTASSIUM CHLORIDE 10 MEQ TABLET.SA PO ONE (12:21)
[2017-07-30] MEDS ORDERED: NORMAL SALINE 1000 ML 1,000 ML IV PRN (12:34)
[2017-07-30] MEDS ORDERED: ONDANSETRON 4 MG TAB.RAPDIS PO ONE (12:34)
[2017-07-30 12:50] LABS: CHLAM PCR NOT DETECTED (NOT DETECT); GON PCR NOT DETECTED (NOT DETECT)
--- NOTE | 2017-07-30 13:17 | EKG REPORT ---
SEVERITY:- ABNORMAL ECG - SINUS RHYTHM LEFT VENTRICULAR HYPERTROPHY : Confirmed by: Maynor Kaplan MD 30-Jul-2017 13:17:13
[2017-07-30] MEDS ORDERED: GLYCOPYRROLATE 1 MG/5 ML SYRINGE ONE (13:19)
[2017-07-30] MEDS ORDERED: ONDANSETRON HCL INJ/PF 4 MG/2 ML SDV ONE (13:19)
[2017-07-30] MEDS ORDERED: DEXAMETHASONE SOD PHOSPHATE INJ 4 MG/1 ML VIAL ONE (13:19)
[2017-07-30] MEDS ORDERED: ROCURONIUM BROMIDE INJ 50 MG/5 ML VIAL IV ONE (13:19)
[2017-07-30] MEDS ORDERED: NEOSTIGMINE METHYLSULFATE 10 MG/10 ML VIAL ONE (13:19)
[2017-07-30] MEDS ORDERED: LIDOCAINE 2% INJ-PF (20 MG/ML) 2 ML AMPUL ONE (13:19)
--- NOTE | 2017-07-30 14:36 | RADIOLOGY REPORT (SQ) ---
EXAM DESCRIPTION: U/S ABDOMEN LIMITED W/O DOP COMPLETED DATE/TIME: 07/30/2017 1:32 pm REASON FOR STUDY: gallstones COMPARISON: Abdominal CT scan dated 07/30/2017 TECHNIQUE: Dynamic and static grayscale images acquired of the abdomen and recorded on PACS. Rafaelao katy selected color Doppler and spectral images recorded. LIMITATIONS: Study is limited due to overlying bowel gas. FINDINGS: PANCREAS: Pancreas could not be visualized due to overlying bowel gas. LIVER: No masses. Echotexture normal. LIVER VASCULATURE: Normal directional flow of the main portal vein. GALLBLADDER: Gallstones are identified as well as a component of biliary sludge. There is some thick ening of the gallbladder huerta measuring 3.1 mm. The possibility of cholecystitis should be consider ed. ULTRASOUND-DETECTED WELLER'S SIGN: Negative. INTRAHEPATIC DUCTS AND COMMON DUCT: CBD and intrahepatic ducts normal caliber. No filling defects. INFERIOR VENA CAVA: Normal flow. AORTA: No aneurysm. RIGHT KIDNEY: 8.2 cm in length. Normal echogenicity. No solid or suspicious masses. No hydronephrosi s. No calcifications. PERITONEAL AND RIGHT PLEURAL SPACE: No ascites or effusions. OTHER: No other significant findings. IMPRESSION: Gallstones are identified as well as a component of biliary sludge. There is some thick ening of the gallbladder huerta measuring 3.1 mm. The possibility of cholecystitis should be consider ed. Other findings as noted above TECHNICAL DOCUMENTATION: JOB ID: [id number] [employer]- All Rights Reserved Reading location - IP/workstation name: [email or web address]
--- NOTE | 2017-07-30 14:39 | RADIOLOGY REPORT (SQ) ---
EXAM DESCRIPTION: U/S NON OB PEL TV W/DOPPLER COMPLETED DATE/TIME: 07/30/2017 1:53 pm REASON FOR STUDY: vaginal bleeding, hx of uterine mass. LMP x 1 year COMPARISON: Abdominal and pelvic CT scan dated 07/30/2017 TECHNIQUE: Dynamic and static grayscale images acquired of the pelvis via transvaginal approach and recorded on PACS. Additional selected color Doppler and spectral images recorded. LIMITATIONS: Study is limited due to overlying bowel gas. FINDINGS: UTERUS: Contour normal. No mass. ENDOMETRIAL STRIPE: No focal or generalized thickening. No masses. CERVIX: No nabothian cysts. RIGHT OVARY AND DOPPLER: Normal size. Right ovarian cyst is identified measuring 1.9 x 1.7 x 1.6 cm. Normal arterial vascular flow without evidence for torsion. LEFT OVARY AND DOPPLER: Left ovary could not be visualized due to overlying bowel gas. FREE FLUID: None noted. OTHER: No other significant finding. MEASUREMENTS: UTERUS: 11.2 x 5.3 x 5.7 cm ENDOMETRIAL STRIPE: 1.3 mm RIGHT OVARY: 2.5 x 2.4 x 2.4 cm LEFT OVARY: Not visualized IMPRESSION: Small right ovarian cyst. No other significant pelvic abnormalities were identified. O ther findings as noted above. TECHNICAL DOCUMENTATION: JOB ID: [id number] [employer]- All Rights Reserved Rev-07/04 Reading location - IP/workstation name: [email or web address]
[2017-07-30] MEDS ORDERED: BUPIVACAINE HCL 0.25 % INJ/PF (2.5 MG/1 ML) 30 ML VIAL ONE (15:19)
[2017-07-30] MEDS ORDERED: CEFOXITIN INJ 1 GM VIAL IV ONE (15:21)
[2017-07-30] MEDS ORDERED: ETOMIDATE INJ/PF 20 MG/10 ML SDV IV ONE (15:34)
[2017-07-30] MEDS ORDERED: CEFOXITIN SODIUM 2 GM in DEXTROSE 5%-WATER 100 ML IV PRN (15:42)
[2017-07-30] MEDS ORDERED: MORPHINE SULFATE 10 MG/ML INJ ONE (15:48)
[2017-07-30] MEDS ORDERED: MIDAZOLAM 2 MG/2 ML INJ ONE (15:48)
[2017-07-30] MEDS ORDERED: PROPOFOL INJ 200 MG/20 ML VIAL IV ONE (15:48)
[2017-07-30] MEDS ORDERED: FENTANYL CITRATE INJ/PF 250 MCG/5 ML AMPULE ONE (15:48)
[2017-07-30] MEDS ORDERED: PROMETHAZINE HCL INJ 25 MG/1 ML VIAL IV PRN (16:17)
[2017-07-30] MEDS ORDERED: FENTANYL CITRATE INJ/PF 100 MCG/2 ML AMPUL IV PRN ×3 (16:17)
[2017-07-30] MEDS ORDERED: DIPHENHYDRAMINE HCL 50 MG/ML VIAL IV PRN (16:17)
[2017-07-30] MEDS ORDERED: MEPERIDINE HCL/PF INJ 25 MG/1 ML DISP.SYRIN IV PRN (16:17)
[2017-07-30] MEDS ORDERED: ONDANSETRON HCL INJ/PF 4 MG/2 ML SDV IV PRN (17:45)
[2017-07-30] MEDS ORDERED: DEXTROSE 5%-LACTATED RINGERS 1,000 ML IV PRN (17:45)
[2017-07-30] MEDS ORDERED: PROMETHAZINE HCL INJ 25 MG/1 ML VIAL ONE (17:54)
[2017-07-30] MEDS ORDERED: KETOROLAC TROMETHAMINE INJ/PF 30 MG/1 ML SDV IV SCH (18:00)
[2017-07-30] MEDS: DOCUSATE SODIUM 100 MG CAPSULE PO SCH (21:09)
[2017-07-30] MEDS: HYDROCODONE/ACETAMINOPHEN 10-325 MG TABLET PO PRN (21:36)
--- NOTE | 2017-07-30 21:49 | PDOC H&P ---
History of Present Illness Admission Date/PCP: 07/30/17 15:17 GUERRERO DELGADO PA-C Patient complains of: Right upper quadrant pain History of Present Illness: YAJAIRA VALLES is a 51 year old female with a one-day history of sharp, stabbing right upper quadrant pain. The pain wraps around to her right scapula. The patient reports nausea and vomiting accompanying her pain. The patient has had right upper quadrant pains in the past, but never this severe. The patient rates her pain as an 8 out of 10. The patient presented to the emergency department, where gallstones were found on ultrasound. The patient was unaware of her gallstones prior to her evaluation. Nothing makes her pain better. Palpation makes her pain worse. The patient denies chest pain, shortness of breath, fevers, chills, melena, hematochezia, hematemesis, malaise , fatigue, orthostasis, blurry vision, headache. Past Medical History Cardiac Medical History: Reports: Hypertension Past Surgical History Past Surgical History: Reports: None Social History Information Source: Patient Smoking Status: Never Smoker Drugs: None - Advance Directive Resuscitation Status: Full Code Family History Family History: Reviewed & Not Pertinent, Hypertension Parental Family History Reviewed: Yes Children Family History Reviewed: Yes Sibling(s) Family History Reviewed.: Yes Medication/Allergy Home Medications: Lisinopril 30 mg PO DAILY 07/30/17 Allergies/Adverse Reactions: No Known Allergies Allergy (Verified 07/30/17 10:53) Review of Systems Constitutional: ABSENT: chills, fever(s) Eyes: ABSENT: visual disturbances Ears: ABSENT: hearing changes Cardiovascular: ABSENT: chest pain, palpitations Respiratory: ABSENT: cough, dyspnea Gastrointestinal: PRESENT: abdominal pain, nausea, vomiting Genitourinary: ABSENT: dysuria Musculoskeletal: PRESENT: back pain Integumentary: ABSENT: pruritus, rash Neurological: ABSENT: abnormal gait, abnormal movements, abnormal speech, paresthesias Psychiatric: ABSENT: anxiety, depression, hallucinations Endocrine: ABSENT: cold intolerance, heat intolerance Hematologic/Lymphatic: ABSENT: easy bleeding, easy bruising Physical Exam Vital Signs: Temp Pulse Resp BP Pulse Ox 97.9 F 60 12 136/88 H 99 07/30/17 15:20 07/30/17 15:15 07/30/17 15:24 07/30/17 15:24 07/30/17 15:24 Intake & Output 07/29/17 07/30/17 07/31/17 06:59 06:59 06:59 Intake Total 1500 Output Total 1500 Balance 0 General appearance: PRESENT: mild distress - Abdominal Head exam: PRESENT: atraumatic, normocephalic Eye exam: PRESENT: EOMI, PERRLA. ABSENT: scleral icterus Mouth exam: PRESENT: moist, neck supple Teeth exam: ABSENT: poor dentation Neck exam: ABSENT: lymphadenopathy, meningismus, tenderness, thyromegaly, tracheal deviation Respiratory exam: PRESENT: clear to auscultation pierce, unlabored. ABSENT: accessory muscle use, chest wall tenderness, tachypnea, wheezes Cardiovascular exam: PRESENT: RRR Pulses: PRESENT: normal radial pulses Vascular exam: PRESENT: normal capillary refill. ABSENT: pallor GI/Abdominal exam: PRESENT: Soler's sign, soft, tenderness - Right upper quadrant. ABSENT: distended Rectal exam: PRESENT: deferred Extremities exam: ABSENT: tenderness Musculoskeletal exam: PRESENT: normal inspection Neurological exam: PRESENT: alert, awake, oriented to person, oriented to place , oriented to time, oriented to situation, CN II-XII grossly intact. ABSENT: motor sensory deficit Psychiatric exam: ABSENT: agitated, anxious, depressed Skin exam: ABSENT: cyanosis, erythema, jaundice, rash Results Impressions: Abdomen/Pelvis CT 07/30/17 07:36 IMPRESSION: Findings consistent with gallstones. There is thickening of the huerta of the gallbladder and the possibility of cholecystitis should be considered. No pericholecystic fluid is identified. If clinically warranted this could be confirmed with a gallbladder ultrasound. Other findings as noted above. Transvaginal US 07/30/17 11:07 IMPRESSION: Small right ovarian cyst. No other significant pelvic abnormalities were identified. Other findings as noted above. Abdomen Ultrasound 07/30/17 12:20 IMPRESSION: Gallstones are identified as well as a component of biliary sludge. There is some thickening of the gallbladder huerta measuring 3.1 mm. The possibility of cholecystitis should be considered. Other findings as noted above Assessment & Plan - Diagnosis (1) Cholecystitis Is this a current diagnosis for this admission?: Yes - Plan Summary Plan Summary: This is a 51-year-old female with right upper quadrant pain, gallstones, gallbladder wall thickening, and a Soler sign. I believe the patient is experiencing acute cholecystitis. I recommended surgical intervention for her. The patient is agreed to this. Risks/benefits discussed, informed consent obtained, and all questions answered.
--- NOTE | 2017-07-30 21:56 | Operative Report ---
Nonrecallable Operative Report DATE OF SURGERY: 07/30/17 PREOPERATIVE DIAGNOSIS: Acute cholecystitis POSTOPERATIVE DIAGNOSIS: Acute cholecystitis OPERATION: Laparoscopic cholecystectomy SURGEON: OKSANA KELLY TISSUE REMOVED OR ALTERED: Gallbladder COMPLICATIONS: None apparent ESTIMATED BLOOD LOSS: 75 cc PROCEDURE: Drains/implants: 15 round Santo drain in the gallbladder fossa. Procedure in detail: After informed consent was obtained, the patient was laid in the supine position in the operating room. The area of the abdomen was prepped and draped in a normal sterile fashion. A 15 blade scalpel was used to create a supraumbilical incision. Dissection was carried through the subcutaneous tissue using blunt dissection. The cicatrix was identified, grasped with a Elaine clamp, and retracted upwards. The linea alba fascia was incised sharply, the abdomen was sharply. The balloon trocar was inserted, and pneumoperitoneum was achieved. Next a subxiphoid 5 mm port was placed under direct laparoscopic visualization. 2 more 5 mm ports were placed in the right upper quadrant in similar fashion. Atraumatic graspers were placed with a 5 mm ports. The gallbladder was retracted cephalad and laterally. There were dense adhesions in and around the gallbladder. The colon and duodenum were dissected away from the gallbladder using sharp dissection. Dissection was focused at the triangle of Calot. There was a dense inflammatory reaction in and around the infundibulum of the gallbladder. The cystic artery was identified, as was the cystic duct. The cystic duct appeared too large for clips, and would require a PDS Endoloop. In order to secure the Endoloop, the cystic artery was clipped and cut with laparoscopic instruments. The gallbladder was then freed from the liver using a mixture of sharp dissection, blunt dissection, and electrocautery. Once the gallbladder was free, a PDS Endoloop was secured around the infundibulum/cystic duct junction. Once this was secured, the gallbladder was amputated, placed into an Endo Catch bag, and pulled out through the umbilicus. The camera was reinserted. The hilum was inspected. It was found to be free of any leakage of blood or bile. Once this was confirmed, the abdomen was copiously irrigated and suctioned until the effluent was clear. A 15 round Santo drain was placed through the lateral trocar and left within the gallbladder fossa. The trochars were then removed, and pneumoperitoneum was relieved. The infraumbilical fascia was closed using 0 Vicryl suture in [id number] fashion. The overlying skin was closed using 4-0 Vicryl Rapide suture in subcuticular fashion. All sponge, instrument, and needle counts were correct 2. Condition: Stable.
[2017-07-30] MEDS: KETOROLAC TROMETHAMINE INJ/PF 30 MG/1 ML SDV IV SCH (22:57)
[2017-07-31] MEDS: KETOROLAC TROMETHAMINE INJ/PF 30 MG/1 ML SDV IV SCH (05:41)
[2017-07-31 06:48] LABS: ALANINE AMINOTRANSFERASE 68 U/L (9-52); ALKALINE PHOSPHATASE 52 U/L (38-126); ANION GAP 8 (5-19); ASPARTATE AMINO TRANSFERASE 47 U/L (14-36); BILIRUBIN,DIRECT 0.2 mg/dL (0.0-0.4); BILIRUBIN,TOTAL 0.2 mg/dL (0.2-1.3); BLOOD UREA NITROGEN 10 mg/dL (7-20); CARBON DIOXIDE 30 mmol/L (22-30); CHLORIDE 105 mmol/L (98-107); GLUCOSE 118 mg/dL (75-110); POTASSIUM 3.7 mmol/L (3.6-5.0); SODIUM 143.4 mmol/L (137-145); TOTAL PROTEIN 5.3 g/dL (6.3-8.2)
[2017-07-31] MEDS: HYDROCODONE/ACETAMINOPHEN 10-325 MG TABLET PO PRN (07:34)
--- NOTE | 2017-07-31 08:49 | PDOC PROGRESS REPORT ---
Subjective Progress Note for:: 07/31/17 Subjective:: Feels well. Wants to go home. Reason For Visit: ACUTE CHOLECYSTITIS Physical Exam Vital Signs: Temp Pulse Resp BP Pulse Ox 98.9 F 55 L 18 91/56 L 94 07/31/17 04:39 07/31/17 04:39 07/31/17 04:39 07/31/17 04:39 07/31/17 04:39 Intake & Output 07/30/17 07/31/17 08/01/17 06:59 06:59 06:59 Intake Total 3650 Output Total 1770 Balance 1880 Weight 75 kg General appearance: PRESENT: no acute distress, cooperative Respiratory exam: PRESENT: clear to auscultation pierce Cardiovascular exam: PRESENT: RRR GI/Abdominal exam: PRESENT: other - Soft, nondistended, very mild right upper quadrant abdominal tenderness. Drain output is very slightly blood-tinged. No bile. Results Laboratory Results: 07/31/17 05:59 07/31/17 05:59 Sodium 143.4 Potassium 3.7 Chloride 105 Carbon Dioxide 30 Anion Gap 8 BUN 10 Creatinine 0.57 Est GFR ( Amer) > 60 Est GFR (Non-Af Amer) > 60 Glucose 118 H Calcium 8.0 L Total Bilirubin 0.2 AST 47 H ALT 68 H Alkaline Phosphatase 52 Total Protein 5.3 L Albumin 3.0 L Impressions: Abdomen/Pelvis CT 07/30/17 07:36 IMPRESSION: Findings consistent with gallstones. There is thickening of the huerta of the gallbladder and the possibility of cholecystitis should be considered. No pericholecystic fluid is identified. If clinically warranted this could be confirmed with a gallbladder ultrasound. Other findings as noted above. Transvaginal US 07/30/17 11:07 IMPRESSION: Small right ovarian cyst. No other significant pelvic abnormalities were identified. Other findings as noted above. Abdomen Ultrasound 07/30/17 12:20 IMPRESSION: Gallstones are identified as well as a component of biliary sludge. There is some thickening of the gallbladder huerta measuring 3.1 mm. The possibility of cholecystitis should be considered. Other findings as noted above Assessment & Plan - Diagnosis (1) Cholecystitis Is this a current diagnosis for this admission?: Yes Plan: Status post laparoscopic cholecystectomy. Patient looks good. Will DC drain and discharge patient home. Follow-up in 2 weeks. Patient ran out of her antihypertensive medications at home. She requests a refill. I will write her a refill until she has a chance to follow with her primary care physician.
--- NOTE | 2017-07-31 08:53 | PDOC PROGRESS REPORT ---
Subjective Reason For Visit: ACUTE CHOLECYSTITIS Physical Exam Vital Signs: Temp Pulse Resp BP Pulse Ox 98.9 F 55 L 18 91/56 L 94 07/31/17 04:39 07/31/17 04:39 07/31/17 04:39 07/31/17 04:39 07/31/17 04:39 Intake & Output 07/30/17 07/31/17 08/01/17 06:59 06:59 06:59 Intake Total 3650 Output Total 1770 Balance 1880 Weight 75 kg Results Laboratory Results: 07/31/17 05:59 07/31/17 05:59 Sodium 143.4 Potassium 3.7 Chloride 105 Carbon Dioxide 30 Anion Gap 8 BUN 10 Creatinine 0.57 Est GFR ( Amer) > 60 Est GFR (Non-Af Amer) > 60 Glucose 118 H Calcium 8.0 L Total Bilirubin 0.2 AST 47 H ALT 68 H Alkaline Phosphatase 52 Total Protein 5.3 L Albumin 3.0 L Impressions: Abdomen/Pelvis CT 07/30/17 07:36 IMPRESSION: Findings consistent with gallstones. There is thickening of the huerta of the gallbladder and the possibility of cholecystitis should be considered. No pericholecystic fluid is identified. If clinically warranted this could be confirmed with a gallbladder ultrasound. Other findings as noted above. Transvaginal US 07/30/17 11:07 IMPRESSION: Small right ovarian cyst. No other significant pelvic abnormalities were identified. Other findings as noted above. Abdomen Ultrasound 07/30/17 12:20 IMPRESSION: Gallstones are identified as well as a component of biliary sludge. There is some thickening of the gallbladder huerta measuring 3.1 mm. The possibility of cholecystitis should be considered. Other findings as noted above Assessment & Plan - Diagnosis (1) Cholecystitis Is this a current diagnosis for this admission?: Yes (2) Hypertension Qualifiers: Hypertension type: essential hypertension Qualified Code(s): I10 - Essential (primary) hypertension Is this a current diagnosis for this admission?: Yes Plan: Patient has history of hypertension but her blood pressure has been running low this morning without tachycardia. She has been urinating well. I will have her hold her antihypertensive medication until she has follow-up with her primary care physician.
[2017-07-31 09:05] LABS: HEMATOCRIT 30.3 % (36.0-47.0); HEMOGLOBIN 10.7 g/dL (12.0-15.5); MEAN CORPUSCULAR HEMOGLOBIN 32.8 pg (27.0-33.4); MEAN CORPUSCULAR HGB CONC 35.3 g/dL (32.0-36.0); MEAN CORPUSCULAR VOLUME 93 fl (80-97); PLATELET COUNT 247 10^3/uL (150-450); RED BLOOD COUNT 3.27 10^6/uL (3.72-5.28); WHITE BLOOD COUNT 9.4 10^3/uL (4.0-10.5)
[2017-07-31] MEDS: DOCUSATE SODIUM 100 MG CAPSULE PO SCH (09:27)
[2017-07-31] MEDS ORDERED: ENOXAPARIN SODIUM INJ 40 MG/0.4 ML DISP.SYRIN SUBCUT SCH (10:00)
--- NOTE | 2017-07-31 10:51 | PDOC PROGRESS REPORT ---
Subjective Reason For Visit: ACUTE CHOLECYSTITIS Physical Exam Vital Signs: Temp Pulse Resp BP Pulse Ox 97.9 F 50 L 18 109/61 96 07/31/17 08:21 07/31/17 08:21 07/31/17 08:21 07/31/17 08:21 07/31/17 08:21 Intake & Output 07/30/17 07/31/17 08/01/17 06:59 06:59 06:59 Intake Total 3650 Output Total 1770 Balance 1880 Weight 75 kg Results Laboratory Results: 07/31/17 05:59 07/31/17 05:59 07/31/17 07/31/17 05:59 05:59 WBC 9.4 RBC 3.27 L Hgb 10.7 L Hct 30.3 L MCV 93 MCH 32.8 MCHC 35.3 RDW 14.0 Plt Count 247 Sodium 143.4 Potassium 3.7 Chloride 105 Carbon Dioxide 30 Anion Gap 8 BUN 10 Creatinine 0.57 Est GFR ( Amer) > 60 Est GFR (Non-Af Amer) > 60 Glucose 118 H Calcium 8.0 L Total Bilirubin 0.2 AST 47 H ALT 68 H Alkaline Phosphatase 52 Total Protein 5.3 L Albumin 3.0 L Impressions: Abdomen/Pelvis CT 07/30/17 07:36 IMPRESSION: Findings consistent with gallstones. There is thickening of the huerta of the gallbladder and the possibility of cholecystitis should be considered. No pericholecystic fluid is identified. If clinically warranted this could be confirmed with a gallbladder ultrasound. Other findings as noted above. Transvaginal US 07/30/17 11:07 IMPRESSION: Small right ovarian cyst. No other significant pelvic abnormalities were identified. Other findings as noted above. Abdomen Ultrasound 07/30/17 12:20 IMPRESSION: Gallstones are identified as well as a component of biliary sludge. There is some thickening of the gallbladder huerta measuring 3.1 mm. The possibility of cholecystitis should be considered. Other findings as noted above Assessment & Plan - Diagnosis (1) Cholecystitis Is this a current diagnosis for this admission?: Yes Plan: Patient was noted with mild hypertension for which she was asymptomatic. She had no tachycardia. No lightheadedness. She has been urinating well. She received copious amounts of perioperative IV fluids and her hematocrit now is 30 which is decreased from preop but perfectly explainable by her hemodilution. Her Ryan-Hodge output is not frankly bloody. Will discharge patient home. Will have patient follow-up with her primary care physician for her hypertensive medications. (2) Hypertension Qualifiers: Hypertension type: essential hypertension Qualified Code(s): I10 - Essential (primary) hypertension Is this a current diagnosis for this admission?: Yes
[2017-07-31 13:00] VITALS: BP 103/88
--- NOTE | 2017-08-01 09:04 | DISCHARGE SUMMARY E ---
Discharge Summary NAME: YAJAIRA VALLES : 1965 AGE: 51Y ADMITTED: 07/30/2017 DISCHARGED: 07/31/2017 DISCHARGE DIAGNOSIS: Acute cholecystitis. PROCEDURE PERFORMED DURING HOSPITALIZATION: Laparoscopic cholecystectomy performed by Dr. Suh on 07/30/2017. HOSPITAL COURSE: The patient underwent the above mentioned surgery. She did well postoperatively. She was tolerating a diet well. Her abdominal exam looked very good. Drain output looked good. The drain was pulled prior to discharge. She does have a history of hypertension; however, her blood pressure on the morning of discharge was 109/61. She did not have tachycardia. She had no lightheadedness. She was voiding well. A postoperative hematocrit was obtained, which did demonstrate decrease of her hematocrit from 36 to 30, but looking over her records, she did receive 4 L of IV fluids, which would explain her hemodilution. Furthermore, the JAMIE output was not bloody. Therefore, nothing suggested that she was bleeding. Patient wanted a refill of her lisinopril, but with her systolic pressure at 109, I was reluctant to write her a refill prescription at this time. I have asked her to follow up with her primary care physician for management of her hypertension. Patient is now being discharged home in good condition. She will follow up with Dr. Suh in 2 weeks. She is encouraged to stay active at home, but avoid strenuous activity. She may resume her preoperative diet. DISCHARGE MEDICATIONS: Percocet 1 p.o. q. 4 hours p.r.n. pain. DICTATING PHYSICIAN: KELLEN NYE M.D. [id number] PHY#: [id number] ID: [id number] JOB#: [id number] ACCT: [id number] cc:BRI PEREZ M.D. [facility],
== END 2017-07-31 12:12 | disposition home or self-care (01) ==
LOC: ER 05:56 → EH 15:17 → INTOOBSV 15:17 → 2S 18:48
PROVIDERS: ATTEND Surgery
PROC: 0FT44ZZ Resection of Gallbladder, Percutaneous Endoscopic Approach (ICD-10-PCS; principal; 2017-07-30 16:00)
DX: K80.12 Calculus of gallbladder with acute and chronic cholecystitis without obstruction (principal); R71.0 Precipitous drop in hematocrit; I95.9 Hypotension, unspecified; I10 Essential (primary) hypertension; N83.201 Unspecified ovarian cyst, right side; N76.0 Acute vaginitis; B96.89 Other specified bacterial agents as the cause of diseases classified elsewhere; Z82.49 Family history of ischemic heart disease and other diseases of the circulatory system; Z79.899 Other long term (current) drug therapy
CPT/HCPCS: 93005; 99285; 96361; 96374; 96375; 36415 ×2; 87086; 82553; 87210; 82550; 84702; 83690; 85025; 85027; 80053 ×2; 81001; 84484; 87491; 87591; 88304 ×2; 76705; 76830; 93976; 74177; 93010; 47562; G0378 ×2; J2250; J3490 ×7; J1100; S0119; J3010 ×2; J1885 ×2; J2270; J1650; J2550; J2405; S0020; J7030; J2704; 790

== ENCOUNTER → 2018-02-05 | Outpatient (CLI) | payer MEDICAID ==
--- NOTE | 2018-02-05 09:05 | RADIOLOGY REPORT (SQ) ---
EXAM DESCRIPTION: MRI RT UPPER JOINT WITHOUT COMPLETED DATE/TIME: 02/05/2018 7:56 am REASON FOR STUDY: INCOMPLETE ROTATOR CUFF TEAR OR RUPTURE OF RIGHT SHOULDER (M75.111) M75.111 INCOM PLETE ROTATR-CUFF TEAR/RUPTR OF R SHOULDER, NOT COMPARISON: None. TECHNIQUE: Right shoulder images acquired and stored on PACS. Multiplanar imaging to include fat sen sitive sequences such as T1, water sensitive sequences such as FST2/STIR, cartilage sensitive sequenc es such as FSPD/gradient-echo sequences. LIMITATIONS: None. FINDINGS: BONE MARROW AND CORTEX: No worrisome bone lesions or marrow replacement. No occult fractur es. JOINT OR BURSAL EFFUSION: No significant joint or bursal fluid. No suggestion of loose bodies. GLENO-HUMERAL ARTICULATION: Normal articulation. No subluxation. No cystic change. No osteophytes or cartilage loss. ACROMION AND AC JOINT: Mild dorsal AC DJD. Mild fluid in the joint and regional edema. No suggestio n of subacromial compromise. ROTATOR CUFF AND INTERVAL: Thickening and tendinosis with focal tear in the supraspinatus just proxim al to insertion. This looks like a focal full-thickness or near full-thickness perforation. No cuff muscle atrophy. No rotator interval tear. No rotator interval thickening to suggest adhesive capsulitis. LABRUM AND BICEPS LABRAL COMPLEX: No evidence of overt tear. REMAINDER OF LABRUM AND IGHL : No gross tear or paralabral cyst formation. Labral evaluation is less than optimal without joint distention. No thickening of IGHL to suggest adhesive capsulitis. PERIARTICULAR AND ADJACENT SOFT TISSUES: No masses or abnormal nodes. OTHER: No other significant finding. IMPRESSION: 1. Cuff disease. Tendinosis and supraspinatus focal high-grade partial/full-thickness breech. 2. Mild AC degenerative change. TECHNICAL DOCUMENTATION: JOB ID: [id number] [employer]- All Rights Reserved Reading location - IP/workstation name: [email or web address]
== END ==
LOC: RAD 06:58
PROVIDERS: ATTEND Orthopaedic Surgery
DX: M75.111 Incomplete rotator cuff tear or rupture of right shoulder, not specified as traumatic (principal)

== ENCOUNTER 2018-03-26 05:41 | Day surgery (SDC) | payer MEDICAID ==
[2018-03-19 11:11] LABS: APPEARANCE,URINE CLEAR; BILIRUBIN,URINE NEGATIVE (NEGATIVE); COLOR,URINE YELLOW; GLUCOSE, URINE NEGATIVE (NEGATIVE); KETONES,URINE NEGATIVE (NEGATIVE); LEUKOCYTE ESTERASE,URINE TRACE (NEGATIVE); NITRITE,URINE NEGATIVE (NEGATIVE); PROTEIN,URINE NEGATIVE (NEGATIVE); URINE SPECIFIC GRAVITY 1.019; UROBILINOGEN,URINE NEGATIVE mg/dL (<2.0)
[2018-03-19 11:12] LABS: HEMATOCRIT 37.3 % (36.0-47.0); MEAN CORPUSCULAR HEMOGLOBIN 32.6 pg (27.0-33.4); MEAN CORPUSCULAR HGB CONC 34.9 g/dL (32.0-36.0); MEAN CORPUSCULAR VOLUME 93 fl (80-97); PLATELET COUNT 289 10^3/uL (150-450); RED BLOOD COUNT 3.99 10^6/uL (3.72-5.28); RED CELL DISTRIBUTION WIDTH 13.3 % (11.5-14.0); WHITE BLOOD COUNT 4.9 10^3/uL (4.0-10.5)
[2018-03-19 11:29] LABS: ANION GAP 6 (5-19); BLOOD UREA NITROGEN 17 mg/dL (7-20); CALCIUM 10.1 mg/dL (8.4-10.2); CARBON DIOXIDE 32 mmol/L (22-30); CHLORIDE 104 mmol/L (98-107); GLUCOSE 93 mg/dL (75-110); POTASSIUM 4.1 mmol/L (3.6-5.0); SODIUM 142.1 mmol/L (137-145)
--- NOTE | 2018-03-19 12:35 | RADIOLOGY REPORT (SQ) ---
EXAM DESCRIPTION: CHEST PA/LATERAL COMPLETED DATE/TIME: 03/19/2018 10:30 am REASON FOR STUDY: PRE-OP COMPARISON: None. EXAM PARAMETERS: NUMBER OF VIEWS: two views TECHNIQUE: Digital Frontal and Lateral radiographic views of the chest acquired. RADIATION DOSE: NA LIMITATIONS: none FINDINGS: LUNGS AND PLEURA: No opacities, masses or pneumothorax. No pleural effusion. MEDIASTINUM AND HILAR STRUCTURES: No masses or contour abnormalities. HEART AND VASCULAR STRUCTURES: Heart normal size. No evidence for failure. BONES: No acute findings. HARDWARE: None in the chest. OTHER: No other significant finding. IMPRESSION: NO SIGNIFICANT RADIOGRAPHIC FINDING IN THE CHEST. TECHNICAL DOCUMENTATION: JOB ID: [id number] [employer]- All Rights Reserved Reading location - IP/workstation name: [email or web address]
--- NOTE | 2018-03-19 13:16 | EKG REPORT ---
SEVERITY:- ABNORMAL ECG - SINUS ARRHYTHMIA, RATE 55-72 LEFT VENTRICULAR HYPERTROPHY : Confirmed by: Maynor Kaplan MD 19-Mar-2018 13:15:39
[~2018-03-26 05:41] MED LIST: CEFAZOLIN 2 GM/D5W RTU 2 GM/50 ML RTUPB IV ONE; CEFAZOLIN 2 GM/D5W RTU 2 GM/50 ML RTUPB IV PRN; LACTATED RINGERS 1000 ML IV PRN; LIDOCAINE 0.5% INJ-PF (5 MG/ML) 50 ML SDV SUBCUT PRN
[2018-03-26] MEDS ORDERED: ACETAMINOPHEN 1,000 MG/100 ML RTUPB IV ONE (07:02)
[2018-03-26] MEDS ORDERED: HYDROMORPHONE HCL INJ/PF 2 MG/ML AMPULE ONE (07:02)
[2018-03-26] MEDS ORDERED: LIDOCAINE 2% INJ-PF (20 MG/ML) 10 ML AMPUL ONE (07:02)
[2018-03-26] MEDS ORDERED: FENTANYL CITRATE INJ/PF 100 MCG/2 ML AMPUL ONE ×2 (07:02→10:12)
[2018-03-26] MEDS ORDERED: PROPOFOL INJ 200 MG/20 ML VIAL IV ONE (07:02)
[2018-03-26] MEDS ORDERED: EPINEPHRINE INJ/PF 1 MG/1 ML AMPULE ONE (07:12)
[2018-03-26] MEDS ORDERED: BUPIVACAINE HCL 0.5 % INJ/PF 30 ML SDV ONE (07:12)
[2018-03-26] MEDS ORDERED: MEPERIDINE HCL/PF INJ 25 MG/1 ML DISP.SYRIN IV PRN (07:55)
[2018-03-26] MEDS ORDERED: MORPHINE SULFATE 10 MG/ML INJ IV PRN (07:55)
[2018-03-26] MEDS ORDERED: PROMETHAZINE HCL INJ 25 MG/1 ML VIAL IV PRN (07:55)
[2018-03-26] MEDS ORDERED: DIPHENHYDRAMINE HCL 50 MG/ML VIAL IV PRN (07:55)
[2018-03-26] MEDS ORDERED: FENTANYL CITRATE INJ/PF 100 MCG/2 ML AMPUL IV PRN ×3 (07:55)
[2018-03-26] MEDS ORDERED: ONDANSETRON HCL INJ/PF 4 MG/2 ML SDV ONE ×2 (08:02→11:52)
[2018-03-26] MEDS ORDERED: ROCURONIUM BROMIDE INJ 50 MG/5 ML VIAL IV ONE (08:02)
[2018-03-26] MEDS ORDERED: GLYCOPYRROLATE 1 MG/5 ML SYRINGE ONE (08:02)
[2018-03-26] MEDS ORDERED: KETOROLAC TROMETHAMINE 60 MG/2 ML SDV ONE (08:02)
[2018-03-26] MEDS ORDERED: DEXAMETHASONE SOD PHOSPHATE INJ 4 MG/1 ML VIAL ONE (08:02)
[2018-03-26] MEDS ORDERED: SUCCINYLCHOLINE CHLORIDE INJ 200 MG/10 ML VIAL ONE (08:02)
[2018-03-26] MEDS ORDERED: ONDANSETRON HCL INJ/PF 4 MG/2 ML SDV IV PRN (08:30)
[2018-03-26] MEDS ORDERED: MIDAZOLAM 2 MG/2 ML INJ ONE (09:18)
--- NOTE | 2018-03-26 10:10 | Discharge Summary ---
Discharge Summary (SDC) - Discharge Final Diagnosis: Right shoulder arthroscopic rotator cuff repair Date of Surgery: 03/26/18 Discharge Date: 03/26/18 Condition: Good Treatment or Instructions: Patient is instructed to follow up in 10-14 days. Patient instructed to remove dressing in 4 days then can shower and apply Band- Aids as needed. Patient to wear sling for comfort but okay to remove for shower and pendulum e xercises. Pendulum exercises are instructed to be done 3 times a day ideally with breakfast, lunch, dinners and showers. Patient instructed to call if there is any signs of redness or drainage fevers or chills. Prescriptions: Oxycodone HCl/Acetaminophen [Percocet 5-325 mg Tablet] 1 - 2 tab PO ASDIR PRN #30 tablet PRN Reason: Referrals: MAY HEMPHILL MD [Primary Care Provider] - Discharge Diet: As Tolerated Respiratory Treatments at Home: Deep Breathing/Coughing Discharge Activity: No Driving, No Lifting/Push/Pulling, Slowly Increase Activity, Walk Frequently Home Care Assistance: None Needed Report the Following to Your Physician Immediately: Shortness of Breath, Vomiting, Increase in Pain, Fever over 101 Degrees, Unusual Bleeding, Redness, Swelling, Increased Soreness, Drainage-Yellow, Drainage-Lyman, Drainage-Green, Drainage-Foul Smelling
[2018-03-26] MEDS ORDERED: OXYCODONE-ACETAMINOPHEN 5-325 MG TABLET PO PRN ×2 (10:15)
--- NOTE | 2018-03-26 10:15 | Operative Report ---
Operative Report DATE OF SURGERY: 03/26/18 PREOPERATIVE DIAGNOSIS: Right shoulder full-thickness rotator cuff tear POSTOPERATIVE DIAGNOSIS: Same OPERATION: Right shoulder arthroscopic rotator cuff repair SURGEON: CHAD CHOWDHURY ANESTHESIA: GA TISSUE REMOVED OR ALTERED: None COMPLICATIONS: None ESTIMATED BLOOD LOSS: 10 mL INTRAOPERATIVE FINDINGS: As above PROCEDURE: IMPLANTS: 4.75 swivel lock with fiber tape and a second swivel lock for lateral row DESCRIPTION OF PROCEDURE: Patient was brought to the operating room placed in supine position. After successfully induced and intubated the patient patient was placed in the beachchair position the head and endotracheal tube was secured appropriately. The right shoulder was prepped and draped in a normal surgical fashion. A timeout was done identifying the right shoulder as the correct site. After inflating the glenohumeral joint with sterile saline solution an 11 blade was used to establish the posterior portal. The arthroscope was introduced and return of fluid was seen showing that we successfully penetrated the raul ohumeral joint. With the use of spinal needle we're able to car the anterior portal and using an 11 blade able to establish anterior portal. A cannula was introduced through the anterior portal. At this point diagnostic scope was done. Patient had a small full-thickness tear of the rotator cuff with partial tearing of the edges as well. A lateral portal was established 11 blade. 4.0mm shaver was introduced and was used to prepare the tear and the frontal bone for preparation of anchor placement. Once I was satisfied with the preparation I then redirected my scope into the subacromial space. Formal bursectomy was done using radiofrequency ablator and shaver. Exposed the tear on the acromial side. A percutaneous incision was then just adjacent to the acromion on the lateral aspect. Through this percutaneous hole the awl was used to prepare the hole for an anchor. Drewsey was percutaneously sent flushed with the bone just adjacent to the articular margin. Patient did not need a second anchor due to the size of the tear being small. Sutures were passed through the anterior portal for proper suture management. With the use of the scorpion and I proceeded to pass the sutures through the rotator cuff tendon with proper suture management was able to pass the strands either through percutaneous hole or the anterior portal. Once I was satisfied with placement of all my sutures I then proceeded to do my arthroscopic knots. At this point the strands were used to do our lateral row. Bicomposite show out was used and the lateral aspect of the humerus was then cleaned off with a shaver and electrocautery. Once identified once I was replacement I proceeded to use my awl to do my hole. This this point the sutures were adequately tensioned and subluxed for inserted and secured securing and increasing the footprint of the rotator cuff repair. Remaining strands were cut with the arthroscopic cutter. Final pictures were taking showing my repair. At this point fluid from the shoulder was removed camera and instruments were all removed. I proceeded to close my portal sites with 3-0 nylon. Xeroform 4 x 4 dressing followed by ABDs pads and Medipore tape was appl ied. Patient was placed in a sling and returned to supine position where he was successfully extubated and taken to PACU in stable condition.
[2018-03-26] MEDS ORDERED: OXYCODONE-ACETAMINOPHEN 5-325 MG TABLET ONE (11:34)
[2018-03-26 14:22] VITALS: BP 100/67
== END 2018-03-26 12:40 | disposition home or self-care (01) ==
LOC: OROUT 05:41
PROVIDERS: ATTEND Orthopaedic Surgery
DX: M75.121 Complete rotator cuff tear or rupture of right shoulder, not specified as traumatic (principal); I10 Essential (primary) hypertension; Z87.891 Personal history of nicotine dependence; Z79.899 Other long term (current) drug therapy
CPT/HCPCS: 93010; 93005; 36415; 85027; 81025; 80048; 81001; 71046; 29827; C1713 ×2; J2250; J3490 ×4; J1100; J0171; J1885; J3010; J1170; J0330; J2405; J2704; J0690; J0131; 1630

== ENCOUNTER 2018-08-12 22:37 | Emergency (ER) | payer MEDICAID ==
[2018-08-12 22:50] VITALS: BP 120/80
== END 2018-08-12 23:31 | disposition left against medical advice (07) ==
LOC: ER 22:37
DX: Z53.21 Procedure and treatment not carried out due to patient leaving prior to being seen by health care provider (principal)

== ENCOUNTER → 2018-09-22 | Outpatient (CLI) | payer MEDICAID ==
--- NOTE | 2018-09-23 08:09 | WOMENS IMAGING REPORT ---
EXAM DESCRIPTION: BILAT SCREENING MAMMO W/CAD COMPLETED DATE/TIME: 09/22/2018 1:23 pm REASON FOR STUDY: ROUTINE SCREENING MAMMOGRAM Z12.31 Z12.31 ENCNTR SCREEN MAMMOGRAM FOR MALIGNANT N EOPLASM OF JOHNNIE COMPARISON: Baseline study EXAM PARAMETERS: Standard craniocaudal and mediolateral oblique views of each breast recorded using digital acquisition. Read with the assistance of CAD. .[employer] Version 9.2 LIMITATIONS: None. FINDINGS: No suspicious masses, suspicious calcifications or architectural distortion. No areas of c oncern. IMPRESSION: Negative MAMMOGRAM. BIRADS 1 BREAST DENSITY: Choose 2 BIRAD: ASSESSMENT: 1 NEGATIVE RECOMMENDATION: ROUTINE SCREENING COMMENT: The patient has been notified of the results by letter per MQSA requirements. Additional no tification policies are in place for contacting patient with suspicious or incomplete findings. Quality ID #225: The [employer] recommends an annual screening mammogram for women aged 40 years or over. This facility utilizes a reminder system to ensure that all patients receive reminder letters, and/or direct phone calls for appointments. This includes reminders for routine scr eening mammograms, diagnostic mammograms, or other Breast Imaging Interventions when appropriate. Th is patient will be placed in the appropriate reminder system. TECHNICAL DOCUMENTATION: FINDING NUMBER: (1) ASSESSMENT: (1) JOB ID: [id number] [employer]- All Rights Reserved Reading location - IP/workstation name: [email or web address]
== END ==
LOC: WI 12:45
PROVIDERS: ATTEND Internal Medicine
DX: Z12.31 Encounter for screening mammogram for malignant neoplasm of breast (principal)
CPT/HCPCS: 77067

== ENCOUNTER 2019-05-04 07:33 | Observation (INO) | payer SELFPAY ==
[2019-05-04] MEDS ORDERED: NORMAL SALINE 1000 ML 1,000 ML IV ONE (07:54)
[2019-05-04] MEDS ORDERED: ONDANSETRON HCL INJ/PF 4 MG/2 ML SDV IV ONE ×2 (07:54→08:30)
--- NOTE | 2019-05-04 08:19 | ER Document Report ---
ED General - General Chief Complaint: Abdominal Pain Stated Complaint: UPPER ABDOMINAL PAIN/VOMITING Time Seen by Provider: 05/04/19 08:16 Mode of Arrival: Ambulatory TRAVEL OUTSIDE OF THE [place] IN LAST 30 DAYS: No - HPI Notes: 53-year-old female with a medical history of hypertension presents emergency room with complaints of umbilical pain and distention that started at 5:00 this morning, states it woke her from sleep. She states that soon as she sat up she started feeling nauseous. Worse with sitting down better with standing up. Reports erection and is passing flatus. Patient did have a bowel movement yesterday which she states was "normal for her". Pain is constant. Reports only abdominal surgery was having a cholecystectomy in 2018 done at [facility]. No other health issues. Patient has not tried any [id number] medication for the symptoms. States this is "never happened before". Daughter is at bedside and states that her stomach is abnormally distended from what it usually is. Denies fevers, chills, chest pain,palpitations, shortness of breath, dyspnea, diarrhea, hematuria,blurred vision, double vision, loss of vision, speech changes, LH, dizziness, syncope, headaches, wheezing, ST, URI, neck pain, weakness, bowel or bladder dysfunction, saddle anesthesia, numbness or tingling in bilateral upper or lower extremities equally, muscle paralysis, weakness in bilateral upper or lower extremities equally or rash. - Related Data Allergies/Adverse Reactions: No Known Allergies Allergy (Verified 05/04/19 16:52) Home Medications: Losartan Past Medical History - General Information source: Patient, Relative - Social History Smoking Status: Never Smoker Family History: Reviewed & Not Pertinent, Hypertension Patient has suicidal ideation: No Patient has homicidal ideation: No - Past Medical History Cardiac Medical History: Reports: Hx Hypertension - ON MEDS Denies: Hx Congestive Heart Failure, Hx Coronary Artery Disease, Hx Heart Attack Pulmonary Medical History: Denies: Hx Asthma, Hx Bronchitis, Hx COPD, Hx Pneumonia, Hx Tuberculosis Neurological Medical History: Denies: Hx Cerebrovascular Accident, Hx Seizures, Hx Parkinson's Disease Renal/ Medical History: Denies: Hx End Stage Renal Disease, Hx Kidney Stones, Hx Peritoneal Dialysis GI Medical History: Denies: Hx Cirrhosis, Hx Gastroesophageal Reflux Disease, Hx Ulcer Musculoskeletal Medical History: Reports Hx Arthritis, Denies Hx Multiple Sclerosis Psychiatric Medical History: Denies: Hx Bipolar Disorder, Hx Depression, Hx Schizophrenia - Immunizations Hx Diphtheria, Pertussis, Tetanus Vaccination: No Review of Systems - Review of Systems Constitutional: No symptoms reported EENT: No symptoms reported Cardiovascular: No symptoms reported Respiratory: No symptoms reported Gastrointestinal: See HPI Genitourinary: No symptoms reported Female Genitourinary: No symptoms reported Musculoskeletal: No symptoms reported Skin: No symptoms reported Hematologic/Lymphatic: No symptoms reported Neurological/Psychological: No symptoms reported Physical Exam - Vital signs Vitals: Temp Pulse Resp BP Pulse Ox 97.8 F 80 18 167/114 H 99 05/04/19 07:37 05/04/19 07:37 05/04/19 07:37 05/04/19 07:37 05/04/19 07:37 - Notes Notes: PHYSICAL EXAMINATION: reviewed vital signs by RN GENERAL: Well-appearing, well-nourished and in no acute distress. HEAD: Atraumatic, normocephalic. EYES: Pupils equal round and reactive to light, extraocular movements intact, conjunctiva are normal. ENT: Nares patent, oropharynx clear without exudates. Moist mucous membranes. NECK: Normal range of motion, supple without lymphadenopathy LUNGS: Breath sounds clear to auscultation bilaterally and equal. No wheezes rales or rhonchi. HEART: Regular rate and rhythm without murmurs ABDOMEN: Bowel sounds heard in all quadrants. soft throughout. Noted umbilical distention, tenderness to umbilical area only. No guarding, no rebound. No masses appreciated. no CVA tenderness appreciated bilaterally. Female : deferred Musculoskeletal: Normal range of motion, no pitting or edema. No cyanosis. NEUROLOGICAL: Cranial nerves grossly intact. Normal speech, normal gait. Normal sensory, motor exams PSYCH: Normal mood, normal affect. SKIN: Warm, Dry, normal turgor, no rashes or lesions noted. Course - Re-evaluation Re-evalutation: 05/04/19 08:35 Afebrile, slightly hypertensive the patient did not take her blood pressure meds this morning, in no distress. Nurse's notes reviewed. Nurses note states that patient does have history of IBS and Crohn's however the patient did not state that she had these issues. Patient is receiving iron the hydration, antiemetics, pain control while labs and radiological imaging is pending. 1021- CBC negative for leukocytosis or anemia, CMP negative for renal dysfunction, AST ALT slightly elevated but not 3 times normal, no electrolyte disturbances. Chest x-ray unremarkable. CT abdomen pelvis with IV pending. 1100-CT abdomen pelvis with IV contrast shows that patient has a umbilical hernia containing a loop of small bowel with evidence of at least a partial small bowel bowel obstruction no perforation or peritoneal abscess. No evidence of bowel ischemia. Contacted Dr. Hui, surgeon on-call at 1111, he will be bedside to consult patient. Vitals are stable, patient is not in any distress at this time. Dr. Jasso be bringing patient to the OR patient has maintained only p.o. status. Patient verbalized understanding of this plan of care and agree with plan of care. - Vital Signs Vital signs: Temp Pulse Resp BP Pulse Ox 97.9 F 64 16 137/75 H 94 05/04/19 17:00 05/04/19 17:00 05/04/19 17:00 05/04/19 17:00 05/04/19 17:00 - Laboratory Result Diagrams: 05/04/19 08:30 05/04/19 08:30 Laboratory results interpreted by me: 05/04/19 05/04/19 05/04/19 08:30 08:30 09:30 Seg Neutrophils % 79.7 H Creatinine 0.50 L Calcium 10.4 H AST 55 H ALT 64 H Total Protein 8.7 H Urine Protein 30 H Urine Blood MODERATE H Leukocyte Esterase Rfl SMALL H Discharge - Discharge Clinical Impression: SBO (small bowel obstruction), Incarcerated hernia Condition: Stable Disposition: ADMITTED INPATIENT Admitting Provider: Surgicalist - Dr. Zion Hui Unit Admitted: OR
[2019-05-04] MEDS ORDERED: METOCLOPRAMIDE HCL ORAL SOLN 10 MG/10 ML UDCUP PO ONE (08:29)
[2019-05-04] MEDS ORDERED: MAG HYDROX/AL HYDROX/SIMETH SUSP 30 ML UDCUP PO ONE (08:29)
[2019-05-04] MEDS ORDERED: LIDOCAINE 2% VISCOUS SOLN 15 ML UDCUP PO ONE (08:29)
[2019-05-04] MEDS ORDERED: MORPHINE SULFATE 10 MG/ML INJ IV ONE (08:35)
[2019-05-04 08:44] LABS: ABSOLUTE EOSINOPHILS # (AUTO) 0.1 10^3/uL (0.0-0.6); ABSOLUTE LYMPHOCYTES (AUTO) 1.4 10^3/uL (0.5-4.7); ABSOLUTE MONOCYTES (AUTO) 0.4 10^3/uL (0.1-1.4); ABSOLUTE NEUT (AUTO) 7.8 10^3/uL (1.7-8.2); BASOPHILS % (AUTO) 0.2 % (0-2); EOSINOPHILS % (AUTO) 1.5 % (0-6); HEMATOCRIT 41.9 % (36.0-47.0); HEMOGLOBIN 14.4 g/dL (12.0-15.5); LYMPHOCYTES % (AUTO) 14.5 % (13-45); MEAN CORPUSCULAR HEMOGLOBIN 32.3 pg (27.0-33.4); MEAN CORPUSCULAR HGB CONC 34.3 g/dL (32.0-36.0); MEAN CORPUSCULAR VOLUME 94 fl (80-97); MONOCYTES % (AUTO) 4.1 % (3-13); PLATELET COUNT 292 10^3/uL (150-450); RED BLOOD COUNT 4.46 10^6/uL (3.72-5.28); RED CELL DISTRIBUTION WIDTH 13.9 % (11.5-14.0); SEGMENTED NEUTROPHILS % (AUTO) 79.7 % (42-78); TOTAL CELLS COUNTED % (AUTO) 100 %; WHITE BLOOD COUNT 9.7 10^3/uL (4.0-10.5)
[2019-05-04 09:08] LABS: ALBUMIN 4.9 g/dL (3.5-5.0); ALKALINE PHOSPHATASE 112 U/L (38-126); ANION GAP 10 (5-19); ASPARTATE AMINO TRANSFERASE 55 U/L (14-36); BILIRUBIN,DIRECT 0.4 mg/dL (0.0-0.4); BILIRUBIN,TOTAL 0.6 mg/dL (0.2-1.3); BLOOD UREA NITROGEN 13 mg/dL (7-20); CALCIUM 10.4 mg/dL (8.4-10.2); CARBON DIOXIDE 27 mmol/L (22-30); CHLORIDE 102 mmol/L (98-107); GLUCOSE 108 mg/dL (75-110); POTASSIUM 4.2 mmol/L (3.6-5.0); TOTAL PROTEIN 8.7 g/dL (6.3-8.2)
--- NOTE | 2019-05-04 09:34 | RADIOLOGY REPORT (SQ) ---
EXAM DESCRIPTION: CHEST 2 VIEWS COMPLETED DATE/TIME: 05/04/2019 9:22 am REASON FOR STUDY: epigastric pain COMPARISON: 03/19/2018. EXAM PARAMETERS: NUMBER OF VIEWS: two views TECHNIQUE: Digital Frontal and Lateral radiographic views of the chest acquired. RADIATION DOSE: NA LIMITATIONS: none FINDINGS: LUNGS AND PLEURA: No opacities, masses or pneumothorax. No pleural effusion. MEDIASTINUM AND HILAR STRUCTURES: No masses or contour abnormalities. HEART AND VASCULAR STRUCTURES: Heart normal size. No evidence for failure. BONES: No acute findings. HARDWARE: None in the chest. OTHER: No other significant finding. IMPRESSION: NO ACUTE RADIOGRAPHIC FINDING IN THE CHEST. TECHNICAL DOCUMENTATION: JOB ID: [id number] [employer]- All Rights Reserved Reading location - IP/workstation name: [email or web address]
[2019-05-04 09:55] LABS: APPEARANCE,URINE SLIGHTLY-CLOUDY; BILIRUBIN,URINE NEGATIVE (NEGATIVE); COLOR,URINE YELLOW; GLUCOSE, URINE NEGATIVE (NEGATIVE); KETONES,URINE NEGATIVE (NEGATIVE); PROTEIN,URINE 30 mg/dL (NEGATIVE); URINE SPECIFIC GRAVITY 1.019; UROBILINOGEN,URINE NEGATIVE mg/dL (<2.0)
--- NOTE | 2019-05-04 10:40 | RADIOLOGY REPORT (SQ) ---
EXAM DESCRIPTION: CT ABD/PELVIS WITH IV ONLY COMPLETED DATE/TIME: 05/04/2019 8:50 am REASON FOR STUDY: Umbilical distention and pain, sudden onset -fever. Periumbilical pain. Feels a knot at the umbilicus. Previous cholecystectomy. COMPARISON: 07/30/2017. TECHNIQUE: CT scan of the abdomen and pelvis performed using helical scanning technique with dynamic intravenous contrast injection. No oral contrast. Images reviewed with lung, soft tissue, and bone windows. Reconstructed coronal and sagittal MPR images reviewed. Delayed images for evaluation of the urinary system also acquired. All images stored on PACS. All CT scanners at this facility use dose modulation, iterative reconstruction, and/or weight based d osing when appropriate to reduce radiation dose to as low as reasonably achievable (ALARA). [facility]: Dose Right [facility]: CareDose [facility]: Dose Right [facility]: Teradose 4D [facility]: [employer] CONTRAST TYPE AND DOSE: contrast/concentration: Isovue 350.00 mg/ml; Total Contrast Delivered: 99.0 ml; Total Saline Delivered: 65.0 ml RENAL FUNCTION: GFR > 60. RADIATION DOSE: CT Rad equipment meets quality standard of care and radiation dose reduction techniq ues were employed. CTDIvol: 13.7 - 17.3 mGy. DLP: 1775 mGy-cm.. LIMITATIONS: None. FINDINGS: LOWER CHEST: No significant findings. No nodules or infiltrates. LIVER: Normal size. No masses. No dilated ducts. SPLEEN: Normal size. No focal lesions. PANCREAS: No masses. No significant calcifications. No adjacent inflammation or peripancreatic fluid collections. Pancreatic duct not dilated. GALLBLADDER: No identified stones by CT criteria. No inflammatory changes to suggest cholecystitis. ADRENAL GLANDS: No significant masses or asymmetry. RIGHT KIDNEY AND URETER: No solid masses. No significant calcifications. No hydronephrosis or hyd roureter. LEFT KIDNEY AND URETER: No solid masses. No significant calcifications. No hydronephrosis or hydr oureter. AORTA AND VESSELS: No aneurysm. No dissection. Renal arteries, SMA, celiac without stenosis. RETROPERITONEUM: No retroperitoneal adenopathy, hemorrhage or masses. BOWEL AND PERITONEAL CAVITY: There is an umbilical hernia containing a loop of small bowel with abdom inal wall defect measuring 2.5 cm diameter. Proximal small bowel is mildly dilated measuring up to 3 .1 cm diameter. Distal small bowel is decompressed. Small amount of fluid in the hernia sac. No ev idence of pneumatosis intestinalis. No ascites or pneumoperitoneum. APPENDIX: Normal. PELVIS: Uterus and ovaries have normal size. No adnexal mass. Urinary bladder has normal contour. Calcified pelvic phleboliths. ABDOMINAL WALL: No masses. No hernias. BONES: No significant or acute findings. OTHER: No other significant finding. IMPRESSION: 1. Umbilical hernia containing a loop of small bowel with evidence of at least partial small bowel ob struction. No perforation or peritoneal abscess. No evidence of bowel ischemia. COMMENT: Findings discussed with RN caring for the patient on 05/04/2019 at 1028 hours. TECHNICAL DOCUMENTATION: JOB ID: [id number] Quality ID # [id number]: Final reports with documentation of one or more dose reduction techniques (e.g., Au tomated exposure control, adjustment of the mA and/or kV according to patient size, use of iterative reconstruction technique) 2010 [employer]- All Rights Reserved Reading location - IP/workstation name: [email or web address]
[2019-05-04] MEDS ORDERED: DEXTROSE 40% GEL 15 GM TUBE PO PRN ×2 (12:02)
[2019-05-04] MEDS ORDERED: GLUCAGON,HUMAN RECOMB 1 MG INJ SUBCUT PRN (12:02)
[2019-05-04] MEDS ORDERED: DEXTROSE 50%-WATER 25 GM/50 ML DISP.SYRIN IV PRN ×2 (12:02)
--- NOTE | 2019-05-04 12:02 | PDOC H&P ---
History of Present Illness Admission Date/PCP: 05/04/19 11:45 MAY HEMPHILL MD Patient complains of: Abdominal pains with nausea and vomiting History of Present Illness: YAJAIRA VALLES is a 53 year old female who had laparoscopic cholecystectomy done around 2017 complaining of severe umbilical pains with nausea and vomiting around 4 AM today. She tried to move a heavy cabinet at home about a week ago. She claims there is some palpable prominence along the umbilical area after her laparoscopic cholecystectomy. She denies fever no c hills. Past Medical History Cardiac Medical History: Reports: Hypertension - ON MEDS Denies: Congestive Heart Failure, Coronary Artery Disease, Myocardial Inf arction Pulmonary Medical History: Denies: Asthma, Bronchitis, Chronic Obstructive Pulmonary Disease (COPD), Pneumonia, Tuberculosis Neurological Medical History: Denies: Seizures Renal/ Medical History: Denies: End Stage Renal Disease GI Medical History: Denies: Cirrhosis, Gastroesophageal Reflux Disease Musculoskeltal Medical History: Reports: Arthritis Psychiatric Medical History: Denies: Bipolar Disorder, Depression Hematology: Denies: Anemia, Bleeding Tendencies Past Surgical History Past Surgical History: Reports: Cholecystectomy Social History Smoking Status: Current Every Day Smoker Drugs: None Family History Family History: Reviewed & Not Pertinent, Hypertension Parental Family History Reviewed: Yes Children Family History Reviewed: No Sibling(s) Family History Reviewed.: No Medication/Allergy Home Medications: Losartan Potassium [Cozaar 50 mg Tablet] 50 mg PO DAILY 08/27/18 Omeprazole 20 mg PO DAILY #10 capsule. 05/04/19 Allergies/Adverse Reactions: No Known Allergies Allergy (Verified 05/04/19 09:08) Review of Systems Constitutional: PRESENT: as per HPI Gastrointestinal: PRESENT: abdominal pain, nausea, vomiting Physical Exam Vital Signs: Temp Pulse Resp BP Pulse Ox 97.8 F 65 18 137/87 H 97 05/04/19 07:37 05/04/19 08:48 05/04/19 08:48 05/04/19 08:48 05/04/19 08:48 Intake & Output 05/03/19 05/04/19 05/05/19 06:59 06:59 06:59 Weight 86.7 kg General appearance: PRESENT: severe distress Head exam: PRESENT: atraumatic Eye exam: PRESENT: conjunctiva pink Mouth exam: PRESENT: moist Neck exam: PRESENT: full ROM Respiratory exam: PRESENT: clear to auscultation pierce Cardiovascular exam: PRESENT: RRR Pulses: PRESENT: normal radial pulses Vascular exam: PRESENT: normal capillary refill GI/Abdominal exam: PRESENT: soft, tenderness - With a prominent bulging just above the umbilicus. Unable to manually reduce the hernia Rectal exam: PRESENT: deferred Neurological exam: PRESENT: alert, oriented to person, oriented to place, oriented to time, oriented to situation Psychiatric exam: PRESENT: appropriate affect Skin exam: PRESENT: normal color, warm Results Laboratory Results: 05/04/19 08:30 05/04/19 08:30 05/04/19 05/04/19 05/04/19 08:30 08:30 09:30 WBC 9.7 RBC 4.46 Hgb 14.4 Hct 41.9 MCV 94 MCH 32.3 MCHC 34.3 RDW 13.9 Plt Count 292 Seg Neutrophils % 79.7 H Sodium 139.4 Potassium 4.2 Chloride 102 Carbon Dioxide 27 Anion Gap 10 BUN 13 Creatinine 0.50 L Est GFR ( Amer) > 60 Glucose 108 Calcium 10.4 H Total Bilirubin 0.6 AST 55 H Alkaline Phosphatase 112 Total Protein 8.7 H Albumin 4.9 Lipase 33.6 Urine Color YELLOW Urine Appearance SLIGHTLY-CLOUDY Urine pH 5.0 Ur Specific [place] 1.019 Urine Protein 30 H Urine Glucose (UA) NEGATIVE Urine Ketones NEGATIVE Urine Blood MODERATE H Urine RBC (Auto) 4 Impressions: Chest X-Ray 05/04/19 08:29 IMPRESSION: NO ACUTE RADIOGRAPHIC FINDING IN THE CHEST. Abdomen/Pelvis CT 05/04/19 08:30 IMPRESSION: 1. Umbilical hernia containing a loop of small bowel with evidence of at least partial small bowel obstruction. No perforation or peritoneal abscess. No evidence of bowel ischemia. Assessment & Plan - Diagnosis (1) Incarcerated umbilical hernia Is this a current diagnosis for this admission?: Yes (2) Hypertension Qualifiers: Hypertension type: essential hypertension Qualified Code(s): I10 - Essential (primary) hypertension Is this a current diagnosis for this admission?: Yes - Time Time Spent: 30 to 50 Minutes - Inpatient Certification Medical Necessity: Need For IV Fluids, Need for Pain Control, Need for IV Antibiotics, Need for Surgery - Plan Summary Plan Summary: 53-year-old female hypertensive post laparoscopic cholecystectomy 2018 complained of severe umbilical pains with nausea and vomiting around [address] scan of the abdomen revealed an incarcerated umbilical hernia with a partial bowel obstruction. She denies fever nor chills. She is tender with a some bulging just above the umbilicus that is unable to reduced. Impression: INcarcerated umbilical hernia with bowel obstruction Plans: Keep n.p.o. and hydrate 2 OR for repair of incarcerated umbilical hernia possible use of mesh
[2019-05-04] MEDS ORDERED: PIPERACILLIN/TAZOBACTAM 3.375 GM VIAL IV ONE (12:06)
[2019-05-04] MEDS ORDERED: MORPHINE SULFATE 10 MG/ML INJ IV PRN ×2 (12:06→14:14)
[2019-05-04] MEDS ORDERED: PIPERACILLIN SODIUM/TAZOBACTAM 3.375 GM in NORMAL SALINE 100 ML IV PRN (12:23)
[2019-05-04] MEDS ORDERED: FENTANYL CITRATE INJ/PF 100 MCG/2 ML AMPUL ONE (12:43)
[2019-05-04] MEDS ORDERED: LIDOCAINE 2% INJ-PF (20 MG/ML) 10 ML AMPUL ONE (12:43)
[2019-05-04] MEDS ORDERED: MIDAZOLAM 2 MG/2 ML INJ ONE (12:43)
[2019-05-04] MEDS ORDERED: DEXAMETHASONE SOD PHOSPHATE INJ 4 MG/1 ML VIAL ONE (12:44)
[2019-05-04] MEDS ORDERED: PROPOFOL INJ 200 MG/20 ML VIAL IV ONE (12:44)
[2019-05-04] MEDS ORDERED: ONDANSETRON HCL INJ/PF 4 MG/2 ML SDV ONE (12:44)
[2019-05-04] MEDS ORDERED: CEFAZOLIN INJ 1 GM VIAL ONE (13:00)
[2019-05-04] MEDS ORDERED: BUPIVACAINE HCL 0.5%-EPI 1:200000 INJ/PF 30 ML VIAL ONE (13:50)
[2019-05-04] MEDS ORDERED: BUPIVACAINE HCL 0.5%-EPI 1:200000 INJ/PF 30 ML VIAL INJ ONE (13:52)
--- NOTE | 2019-05-04 14:12 | Operative Report ---
Operative Report DATE OF SURGERY: 05/04/19 PREOPERATIVE DIAGNOSIS: Incarcerated umbilical hernia POSTOPERATIVE DIAGNOSIS: Same OPERATION: Repair of incarcerated umbilical hernia SURGEON: KATHIA JOHNSON ANESTHESIA: GA TISSUE REMOVED OR ALTERED: None COMPLICATIONS: None ESTIMATED BLOOD LOSS: 10 cc QUANTITATIVE BLOOD LOSS: 10 INTRAOPERATIVE FINDINGS: The hernia was reduced measuring general anesthesia. The bowels underneath appear viable. The hernia defect roughly is about 1.5 cm in diameter PROCEDURE: After adequate general anesthesia patient was placed in supine position and the abdomen prepped and draped in the usual sterile fashion. Appropriate timeout w as then called. Next midline incision was made just above the umbilicus and carried down through the subcutaneous area with use of cautery. The the hernia appears to have been reduced spontaneously during general anesthesia. Sac was then opened and the bowel underneath appears to be viable. The sac was dissected down to the fascia area. The there is some omental adhesion underneath the peritoneum that was lysed using cautery. The defect roughly measured about 1.5 cm in diameter. Because of this a mesh was not used. The defect was then closed with interrupted sutures using 0 Prolene in a transverse fashion. The subcu was then irrigated with saline solution and further hemostasis obtained with cautery. Next the subcu some of the sac was reapproximated using 3-0 Vicryl. The skin was then closed with felicia. Sterile dressings placed over the staple site. Needle local anesthesia was infiltrated on the fascia prior to stapling the skin. The skin area was also injected with Marcaine with epinephrine. Patient tolerated procedure well. Patient brought to the PACU extubated in satisfactory condition.
[2019-05-04] MEDS ORDERED: FENTANYL CITRATE INJ/PF 100 MCG/2 ML AMPUL IV PRN ×3 (14:14)
[2019-05-04] MEDS ORDERED: PROMETHAZINE HCL INJ 25 MG/1 ML VIAL IV PRN ×2 (14:14)
[2019-05-04] MEDS ORDERED: DIPHENHYDRAMINE HCL 50 MG/ML VIAL IV PRN (14:14)
[2019-05-04] MEDS ORDERED: MEPERIDINE HCL/PF INJ 25 MG/1 ML DISP.SYRIN IV PRN (14:14)
--- NOTE | 2019-05-04 14:32 | EKG REPORT ---
SEVERITY:- ABNORMAL ECG - SINUS RHYTHM LEFT VENTRICULAR HYPERTROPHY : Confirmed by: Sheila Costa MD 04-May-2019 14:30:46
[2019-05-04] MEDS: DEXTROSE 5%-LACTATED RINGERS 1,000 ML IV PRN ×2 (15:10→22:25)
[2019-05-04] MEDS: MORPHINE SULFATE 10 MG/ML INJ IV PRN ×2 (15:43→19:57)
[2019-05-04] MEDS ORDERED: INFLUENZA QUAD (6MOS+) 2019-20 VAC 0.5 ML SYR IM ONE (16:19)
[2019-05-04] MEDS ORDERED: NEOSTIGMINE METHYLSULFATE 10 MG/10 ML VIAL ONE (16:59)
[2019-05-04] MEDS ORDERED: SUCCINYLCHOLINE CHLORIDE INJ 200 MG/10 ML VIAL ONE (16:59)
[2019-05-04] MEDS ORDERED: ROCURONIUM BROMIDE INJ 50 MG/5 ML VIAL IV ONE (16:59)
[2019-05-04] MEDS ORDERED: ETOMIDATE INJ/PF 20 MG/10 ML SDV IV ONE (16:59)
[2019-05-04] MEDS: PIPERACILLIN SODIUM/TAZOBACTAM 3.375 GM in NORMAL SALINE 100 ML IV SCH ×2 (17:10→22:22)
[2019-05-05] MEDS: MORPHINE SULFATE 10 MG/ML INJ IV PRN ×3 (00:44→11:02)
[2019-05-05] MEDS: PIPERACILLIN SODIUM/TAZOBACTAM 3.375 GM in NORMAL SALINE 100 ML IV SCH ×2 (03:33→09:06)
[2019-05-05] MEDS: DEXTROSE 5%-LACTATED RINGERS 1,000 ML IV PRN (05:35)
--- NOTE | 2019-05-05 07:25 | PDOC DISCHARGE SUMMARY ---
General - Admit/Disc Date/PCP Admission Date/Primary Care Provider: 05/04/19 11:45 MAY HEMPHILL MD Discharge Date: 05/05/19 - Discharge Diagnosis Final Diagnosis: Incarcerated umbilical/ventral hernia - Assessment Summary: Patient had lap marielle in 2018. A week ago patient move heavy furniture at home and on the day of admission noted to have a bulging and severe pains in the umbilical area. CT scan was done in the ED which showed incarcerated umbilical hernia with partial bowel obstruction. Patient underwent with operative reduction and repair primary of the hernia under general anesthesia. Postoperatively patient did very well and discharged on 05/05/2019 to be followed up in the clinic in 2 weeks. Patient advised not to do any heavy lifting more than 10 to 15 pounds for the next 4 weeks. She was given a prescription for Toradol - Additional Information Resuscitation Status: Full Code Discharge Activity: Activity As Tolerated - No lifting more than 10 to 15 pounds for the next 4 weeks Referrals: JOS GALLARDO MD [ACTIVE STAFF] - Follow up as needed MAY HEMPHILL MD [Primary Care Provider] - Follow up as needed Home Medications: Losartan Potassium [Cozaar 50 mg Tablet] 50 mg PO DAILY 08/27/18 Calcium Carbonate [Tums Chewable 500 mg Tab.chew] 500 mg PO DAILYP PRN 05/04/19 Ibuprofen [Motrin 800 mg Tablet] 800 mg PO Q8HP PRN 05/04/19 History of Present Illiness History of Present Illness: YAJAIRA VALLES is a 53 year old female who had laparoscopic cholecystectomy done around 2017 complaining of severe umbilical pains with nausea and vomiting around 4 AM today. She tried to move a heavy cabinet at home about a week ago. She claims there is some palpable prominence along the umbilical area after her laparoscopic cholecystectomy. She denies fever no chills. Hospital Course Hospital Course: Patient underwent lap marielle 2017. Patient move heavy furniture at home about a week prior to the day of admission and surgery. On the day of admission noted severe pains in the umbilical area with some bulging and a CT scan showed incarcerated umbilical hernia with partial small bowel obstruction. Patient underwent repair of the hernia under general anesthesia. Postoperatively she did very well and discharged the next day 05/05/2019 for incarcerated umbilical hernia. She will be seen in the surgical clinic in 2 weeks for removal of the felicia. She was advised not to do any heavy lifting more than 10 to 15 pounds for the next 4 weeks. Prescription for Toradol was given Physical Exam Vital Signs: Temp Pulse Resp BP Pulse Ox 99 F 81 18 136/69 H 94 05/05/19 00:00 05/05/19 00:00 05/05/19 00:00 05/05/19 00:00 05/05/19 00:00 Intake & Output 05/04/19 05/05/19 05/06/19 06:59 06:59 06:59 Intake Total 4676 Output Total 795 Balance 3881 Weight 90.2 kg GI/Abdominal exam: PRESENT: soft, tenderness - Around umbilicus with bulging Results Laboratory Results: WBC 9.7 10^3/uL (4.0-10.5) 05/04/19 08:30 RBC 4.46 10^6/uL (3.72-5.28) 05/04/19 08:30 Hgb 14.4 g/dL (12.0-15.5) 05/04/19 08:30 Hct 41.9 % (36.0-47.0) 05/04/19 08:30 MCV 94 fl (80-97) 05/04/19 08:30 MCH 32.3 pg (27.0-33.4) 05/04/19 08:30 MCHC 34.3 g/dL (32.0-36.0) 05/04/19 08:30 RDW 13.9 % (11.5-14.0) 05/04/19 08:30 Plt Count 292 10^3/uL (150-450) 05/04/19 08:30 Lymph % (Auto) 14.5 % (13-45) 05/04/19 08:30 [place] % (Auto) 4.1 % (3-13) 05/04/19 08:30 Eos % (Auto) 1.5 % (0-6) 05/04/19 08:30 Baso % (Auto) 0.2 % (0-2) 05/04/19 08:30 Absolute Neuts (auto) 7.8 10^3/uL (1.7-8.2) 05/04/19 08:30 Absolute Lymphs (auto) 1.4 10^3/uL (0.5-4.7) 05/04/19 08:30 Absolute Monos (auto) 0.4 10^3/uL (0.1-1.4) 05/04/19 08:30 Absolute Eos (auto) 0.1 10^3/uL (0.0-0.6) 05/04/19 08:30 Absolute Basos (auto) 0.0 10^3/uL (0.0-0.2) 05/04/19 08:30 Seg Neutrophils % 79.7 % (42-78) H 05/04/19 08:30 Sodium 139.4 mmol/L (137-145) 05/04/19 08:30 Potassium 4.2 mmol/L (3.6-5.0) 05/04/19 08:30 Chloride 102 mmol/L (98-107) 05/04/19 08:30 Carbon Dioxide 27 mmol/L (22-30) 05/04/19 08:30 Anion Gap 10 (5-19) 05/04/19 08:30 BUN 13 mg/dL (7-20) 05/04/19 08:30 Creatinine 0.50 mg/dL (0.52-1.25) L 05/04/19 08:30 Est GFR ( Amer) > 60 (>60) 05/04/19 08:30 Est GFR (MDRD) Non-Af > 60 (>60) 05/04/19 08:30 Glucose 108 mg/dL (75-110) 05/04/19 08:30 Calcium 10.4 mg/dL (8.4-10.2) H 05/04/19 08:30 Total Bilirubin 0.6 mg/dL (0.2-1.3) 05/04/19 08:30 Direct Bilirubin 0.4 mg/dL (0.0-0.4) 05/04/19 08:30 Neonat Total Bilirubin Not Reportable 05/04/19 08:30 Neonat Direct Bilirubin Not Reportable 05/04/19 08:30 Neonat Indirect Bili Not Reportable 05/04/19 08:30 AST 55 U/L (14-36) H 05/04/19 08:30 ALT 64 U/L (<35) H 05/04/19 08:30 Alkaline Phosphatase 112 U/L (38-126) 05/04/19 08:30 Total Protein 8.7 g/dL (6.3-8.2) H 05/04/19 08:30 Albumin 4.9 g/dL (3.5-5.0) 05/04/19 08:30 Lipase 33.6 U/L (23-300) 05/04/19 08:30 Urine Color YELLOW 05/04/19 09:30 Urine Appearance SLIGHTLY-CLOUDY 05/04/19 09:30 Urine pH 5.0 (5.0-9.0) 05/04/19 09:30 Ur Specific [place] 1.019 05/04/19 09:30 Urine Protein 30 mg/dL (NEGATIVE) H 05/04/19 09:30 Urine Glucose (UA) NEGATIVE mg/dL (NEGATIVE) 05/04/19 09:30 Urine Ketones NEGATIVE mg/dL (NEGATIVE) 05/04/19 09:30 Urine Blood MODERATE (NEGATIVE) H 05/04/19 09:30 Urine Nitrite (Reflex) NEGATIVE (NEGATIVE) 05/04/19 09:30 Urine Bilirubin NEGATIVE (NEGATIVE) 05/04/19 09:30 Urine Urobilinogen NEGATIVE mg/dL (<2.0) 05/04/19 09:30 Leukocyte Esterase Rfl SMALL (NEGATIVE) H 05/04/19 09:30 Urine RBC (Auto) 4 /HPF 05/04/19 09:30 Urine WBC (Reflex) 8 /HPF 05/04/19 09:30 Squamous Epi Cells Auto 3 /HPF 05/04/19 09:30 Urine Mucus (Auto) MOD /LPF 05/04/19 09:30 Urine Ascorbic Acid NEGATIVE (NEGATIVE) 05/04/19 09:30 Impressions: Chest X-Ray 05/04/19 08:29 IMPRESSION: NO ACUTE RADIOGRAPHIC FINDING IN THE CHEST. Abdomen/Pelvis CT 05/04/19 08:30 IMPRESSION: 1. Umbilical hernia containing a loop of small bowel with evidence of at least partial small bowel obstruction. No perforation or peritoneal abscess. No evidence of bowel ischemia.
[2019-05-05 07:56] VITALS: BP 121/73
== END 2019-05-05 11:45 | disposition home or self-care (01) ==
LOC: ER 07:33 → INTOOBSV 11:45 → EH 11:45 → 4N 14:57
PROVIDERS: ADMIT Surgery; ATTEND Surgery
DX: K42.0 Umbilical hernia with obstruction, without gangrene (principal); I10 Essential (primary) hypertension; F17.200 Nicotine dependence, unspecified, uncomplicated; Z79.899 Other long term (current) drug therapy; Z90.49 Acquired absence of other specified parts of digestive tract; Z23 Encounter for immunization
CPT/HCPCS: 93005; 99285; 96361; 96374; 96375; 36415; 87086; 83690; 85025; 80053; 81001; 71046; 74177; 90686; 93010; 00750; 49587; G0378 ×3; J2250; J3490 ×5; J0690; J1100; J3010; J2270 ×2; J2710; J0330; J2405; J7121 ×2; J7050 ×2; J7030; J2704; J2543 ×2; 750